=== PATIENT | female | born 1995 | race Caucasian/White ===

== ENCOUNTER 2020-11-05 10:55 | Observation (INO) | payer BC, SELFPAY ==
[2020-11-05] VITALS (59 sets, daily range): BP systolic 106–161; BP diastolic 66–110; PULSE 82–159; RESP 11–31; TEMP 36.6–37.9; O2SAT 93–99
[2020-11-05] MEDS: Normal Saline Flush 10 ML SYR IVP ×3 (11:25→23:04)
--- NOTE | 2020-11-05 11:31 | ED.GENADUL_ITS ---
Discharge Plan Discharge Details Chief Complaint: Abd Prob Primary Care Provider: Tara,Local ED Provider: Marisol Olivares Home Meds and New Rx's Prescriptions: No Action Nexplanon 68 MG implant 68 mg RF: 0 omeprazole 20 mg capsule,delayed release(DR/EC) 20 mg PO DAILY PRN PRNRF: 0 metoprolol succinate 25 mg tablet extended release 24 hr 25 mg PO DAILY RF: 0 Flovent HFA 110 mcg/actuation HFA aerosol inhaler 2 puff INHALATION DAILY RF: 0 albuterol sulfate [ProAir HFA] 90 mcg/actuation Hfa Aerosol Inhaler 2 puff INHALATION Q6H PRNRF: 0 Medical Decision Making Case discussed with Dr. Mary, surgeon who will evaluate the patient in the emergency room she has postsurgical with right lower quadrant pain, fever, chills, and meet criteria CT abdomen and pelvis do not show acute pathology per radiologist interpretation Dr. Mary does not see acute evidence of surgical abnormality, she has asked PACKAGING LINE ATTENDANT to evaluate the patient at this time, pending MARKETING COMMUNITY LIAISON evaluation , Mild elevation in CRP, patient is resting which were comfortably in room, she is mildly tachycardic after taking 2 puffs of her inhaler, she has some mild shortness of breath and wheezing with similar symptoms in the past with asthma exacerbation, dose of albuterol was administered Patient did receive a dose she met sepsis criteria upon arrival, she is pending disposition at that time, 1633 Low suspicion for pulmonary embolism, patient without initial presentation of shortness of breath or pleuritic pain, no calf pain or swelling, no history of coagulopathy with reproducible right lower quadrant abdominal discomfort Mild hypokalemia, 3.4, otherwise test do not show significant acute pathology Differential Diagnosis Differential Diagnosis: Intra-abdominal abscess, urinary tract infection, PID, tubo-ovarian abscess Medical Records Medical records reviewed: Yes I reviewed the patient's medical records. Lab Data Lab results reviewed: Yes I reviewed the patient's lab results. HPI This 25-year-old female with past medical history of hypertension presents with fever and worsening abdominal pain. She is status post appendectomy on 26 October. She is unaware she had a fever. She was evaluated on Tuesday by her surgeon, however they were going to perform watchful waiting in hopes of not reimaging patient. She presents today secondary to feeling worsening symptoms of pain. She describes the pain as sharp. Is worse with movement. Moving her bowels without difficulty. Denies nausea or vomiting. Has had chills. Denies urinary symptoms. Denies shortness of breath or chest discomfort. Denies pleuritic chest pain. General Date/Time Provider Initiated Documentation: 11/05/20 11:02 . Related Data Home Medications Medication Instructions Recorded Confirmed etonogestrel [Nexplanon] 68 mg 12/03/15 12/03/15 albuterol sulfate [ProAir HFA] 2 puff INHALATION Q6H PRN 11/05/20 11/05/20 fluticasone propionate [Flovent 2 puff INHALATION DAILY 11/05/20 11/05/20 HFA] metoprolol succinate 25 mg PO DAILY 11/05/20 11/05/20 omeprazole 20 mg PO DAILY PRN PRN 11/05/20 11/05/20 Allergies Allergy/AdvReac Type Severity Reaction Status Date / Time No Known Allergies Allergy Unverified 11/05/20 11:09 General Stated Complaint: Abd Prob JERE: 3 Review of Systems Narrative: Review of systems negative x7 aside from where indicated in HPI [facility] Medical History (Updated 11/05/20 @ 16:17 by Felicitas Mary MD) Endometriosis Hypertension Surgical History (Updated 11/05/20 @ 16:14 by Felicitas Mary MD) S/P laparoscopic appendectomy (~10/26/20) [place]: acute appendicitis and enometriosis S/P right oophorectomy for endometriosis Social History Smoking/Tobacco Use Status: Current every day Tobacco Type: cigarettes Smoking risk assessment performed?: Yes Drug use: Never Do you feel safe at home: Yes Do you feel safe in your relationship?: Yes Exam Const General: cooperative HENNH Mouth: oral mucosae normal Resp Effort & Inspection: normal respiratory effort Auscultation: clear to auscultation bilaterally Cardio Rate: tachycardic Rhythm: regular rhythm GI Other: Lap wounds well in appearance, no dehiscence, no superficial cellulitis, exquisitely tender with guarding, no CVA tenderness Neuro General: patient alert and patient oriented x3 Extrem Other: No calf tenderness or swelling Course Vital Signs Vital signs: Vital Signs Temperature 37.9 C H 11/05/20 11:01 Pulse 159 H 11/05/20 11:01 Respiratory Rate 20 11/05/20 11:01 Blood Pressure 161/110 H 11/05/20 11:01 Pulse Oximetry 99 11/05/20 11:01 Temperature 37.9 C H 11/05/20 11:01 Temperature Source Oral 11/05/20 11:01 Pulse 159 H 11/05/20 11:01 Respiratory Rate 20 11/05/20 11:01 Respiratory Effort Non-Labored 11/05/20 11:07 Blood Pressure 161/110 H 11/05/20 11:01 Blood Pressure Position Sitting 11/05/20 11:01 Pulse Oximetry 99 11/05/20 11:01 Oxygen Delivery Method Room Air 11/05/20 11:01 Oxygen Flow Rate 0 11/05/20 11:01 Pain Level 10 11/05/20 11:01 Lab/Test Results Lab/Test Results: 11/05/20 11:22 Blood Blood Culture - Pending 11/05/20 11:22 Blood Blood Culture - Pending Laboratory Tests Range/Units 11/05/20 11/05/20 11:22 11:23 WBC Cancelled RBC Cancelled Hgb Cancelled Hct Cancelled MCV Cancelled MCH Cancelled MCHC Cancelled RDW Cancelled Plt Count Cancelled MPV Cancelled Immature Gran % Cancelled Neutrophils % Cancelled Band Neutrophils % Cancelled Lymphocytes % Cancelled Atypical Lymphs % Cancelled Monocytes % Cancelled Eosinophils % Cancelled Basophils % Cancelled Metamyelocytes % Cancelled Myelocytes % Cancelled Promyelocytes % Cancelled Other Cells % Cancelled Nucleated RBC % Cancelled Absolute Neutrophils Cancelled Absolute Lymphocytes Cancelled Absolute Monocytes Cancelled Absolute Eosinophils Cancelled Absolute Basophils Cancelled RBC Morphology Cancelled Polychromasia Cancelled Hypochromasia Cancelled Poikilocytosis Cancelled Basophilic Stippling Cancelled Anisocytosis Cancelled Microcytosis Cancelled Macrocytosis Cancelled Spherocytes Cancelled Tear Drop Cells Cancelled Ovalocytes Cancelled Stomatocytes Cancelled [place] Bodies Cancelled Ramsay Cells/Echinocytes Cancelled Acanthocytes (Spur) Cancelled Schistocytes Cancelled Sodium Cancelled Potassium Cancelled Chloride Cancelled Carbon Dioxide Cancelled Anion Gap Cancelled BUN Cancelled Creatinine Cancelled Estimated GFR/1.73 m2 Cancelled Glucose Cancelled Calcium Cancelled Total Bilirubin Cancelled AST Cancelled ALT Cancelled Alkaline Phosphatase Cancelled Total Protein Cancelled Albumin Cancelled
[2020-11-05] MEDS: Normal Saline 500 ML 1000 ML IV (11:40)
[2020-11-05 11:43] LABS: Lactate 1.4 mmol/L (0.6-1.4)
[2020-11-05 11:46] LABS: Abs Immature Grans 0.02 10^3/uL (0.0-0.06); Absolute Basophil Count 0.04 10^3/uL (0.0-0.2); Absolute Eosinophil Count 0.11 10^3/uL (0.0-0.7); Absolute Monocyte Count 0.66 10^3/uL (0.1-0.8); Absolute Neutrophil Count 5.82 10^3/uL (1.2-6.7); Basophils % 0.4; Eosinophils % 1.2; HCT 43.2 % (36.0-46.0); HGB 14.8 g/dL (11.2-15.7); Immature Grans % 0.2; Lymphocytes % 28.9; MCH 28.8 pg (27.0-33.0); MCHC 34.3 % (32.0-36.0); MCV 84.2 fL (80-95); MPV 9.6 fL (8.0-11.0); Monocytes % 7.1; Neutrophils % 62.2; Nucleated RBC 0 %; Platelet Count 377 10^3/uL (130-400); RBC 5.13 10^6/uL (3.93-5.22); RDW 11.2 % (11.7-14.6); RDW-SD 34.5 fL; WBC 9.35 10^3/uL (4.4-10.8)
[2020-11-05] MEDS: fentaNYL 100 MCG/2 ML VIAL 50 MCG IM (11:50)
[2020-11-05] MEDS: PIPERACILLIN/TAZO 3.375 GM in Normal Saline 50 ML IVPB (11:54)
[2020-11-05 12:00] LABS: ALT 21 U/L (14-59); AST 14 U/L (15-37); Albumin 4.3 g/dL (3.4-5.0); Alkaline Phosphatase 99 U/L (46-116); Anion Gap 12.3 mmol/L (3-11); BUN 17 mg/dL (7-18); Bilirubin, Total 0.4 mg/dL (0.2-1.0); C-Reactive Protein 0.82 mg/dL (0.0-0.3); CO2 24.7 mmol/L (21.0-32.0); CREATININE 0.8 mg/dL (0.55-1.02); Calcium 9.3 mg/dL (8.5-10.1); Chloride 100 mmol/L (98-107); Glucose 104 mg/dL (74-106); Lipase 135 U/L (73-393); Potassium 3.4 mmol/L (3.5-5.1); Sodium 137 mmol/L (136-145); Total Protein 8.8 g/dL (6.4-8.2)
--- NOTE | 2020-11-05 12:00 | DI.RAD_ITS ---
EXAM: XR CHEST 2V PA LATERAL CLINICAL HISTORY: fever. TECHNIQUE: 2D digital imaging was performed. COMPARISON: No exams were available for comparison FINDINGS: Heart size is normal. The mediastinum is not widened. Lungs are clear. No infiltrates nor pleural effusions. IMPRESSION: No acute pulmonary findings. DATA REPOSITORY: RADIATION DOSE DELIVERED:
[2020-11-05 12:02] LABS: Magnesium 2.1 mg/dL (1.8-2.4)
[2020-11-05 12:07] LABS: Troponin I < 0.05 ng/mL (<0.06)
[2020-11-05 12:26] LABS: Bilirubin Negative (Negative); Blood Moderate (Negative); Clarity Clear (Clear); Glucose Negative (Negative); Ketones Negative (Negative); Leukocyte Esterase Negative (Negative); Nitrite Negative (Negative); Specific Gravity >= 1.030 (1.005-1.025); Urobilinogen 0.2 EU/dL (Up TO 0.2)
[2020-11-05 12:35] LABS: Bacteria Moderate HPF (Negative); C & S Indicated? No/Sq. Contamination; Casts Negative LPF (Negative); Crystals Negative HPF (Negative); Epithelial Cells Moderate HPF (Negative); Mucus Moderate (Negative); RBC 0-2 HPF (0-2)
[2020-11-05] MEDS: MORPHine 10 MG/ML VIAL 6 MG IVP ×2 (12:46→15:54)
[2020-11-05 12:52] LABS: Influenza A PCR Negative (Negative); Influenza B PCR Negative (Negative); RSV PCR Negative (Negative)
[2020-11-05 12:54] LABS: COVID-19 PCR Negative (Negative)
[2020-11-05] MEDS: Omnipaque 350 MG/ML 100 ML BTL IJ (13:33)
[2020-11-05] MEDS: Normal Saline - Diluent 50 ML VIAL IV (13:36)
--- NOTE | 2020-11-05 13:36 | DI.CT_ITS ---
EXAM: CT ABDOMEN PELVIS W CLINICAL HISTORY: RLQ pain. TECHNIQUE: Imaging Protocol: Axial computed tomography images with coronal and sagittal reformatted images were created and reviewed CONTRAST MATERIAL: Intravenous: Omnipaque 100cc Oral: None COMPARISON: Prior CT scan November 2015 was reviewed FINDINGS: VISUALIZED LUNG BASES: No nodules nor pleural effusions evident. ABDOMEN: There is no ascites. LIVER: There are no obvious focal hepatic lesions evident . GALLBLADDER/BILIARY: No obvious gallbladder pathology. CBD is not dilated. PANCREAS: No evidence of pancreatic mass nor dilatation of the pancreatic duct. SPLEEN: Spleen is not enlarged. No obvious intrasplenic lesions. Splenic and portal veins are paten t. ADRENALS: There are no significant adrenal masses. KIDNEYS:No cysts evident. No solid renal masses. No calculi nor hydronephrosis.. ABDOMINAL AORTA: Abdominal aorta is not enlarged. LYMPH NODES:There is no retroperitineal nor paraaortic adenopathy. ABDOMINAL WALL/GI: No evidence of significant anterior abdominal wall hernia. No bowel obstruction. PELVIS: GI: The appendix is surgically absent. There is no evidence of abscess in this region. No bowel obs truction.No evidence of sigmoid diverticulitis. LYMPH NODES: There is no intrapelvic nor inguinal adenopathy. REPRODUCTIVE: Age-appropriate URINARY BLADDER: No calculi nor obvious masses evident OSSEOUS: No significant osseous lesions. IMPRESSION: 1. Compared to 2016 there has been interval appendectomy. There is no abnormal fluid collection in t his region nor elsewhere in the abdomen and pelvis. 2. No bowel obstruction. No free air. No abscess. 3. Visualized lung bases are clear. RADIATION DOSE DELIVERED: 1,010.78mGy.cm Total DLP DATA REPOSITORY: All CT scans at this facility are submitted to the National Radiology Data Registry (NRDR) Dose Index Registry (DIR) with the [employer] (ACR). RADIATION OPTIMIZATION: All CT scans at this facility use at least one of these dose optimization te chniques: automated exposure control; mA and/or kV adjustment per patient size (includes targeted exa ms where dose is matched to clinical indication); or iterative reconstruction.
[2020-11-05] MEDS: HYDROmorphone 2 MG/ML VIAL 1 MG IVP (14:01)
[2020-11-05] MEDS: Albuterol HFA 8 GM 60 PUFF INH IH ×2 (15:27→20:52)
[2020-11-05] MEDS: Inhaler, Assist Device 1 EACH MC (15:27)
[2020-11-05] MEDS: Ketorolac 15 MG/ML VIAL IVP (15:45)
--- NOTE | 2020-11-05 15:56 | W.SURGCON ---
Date of service: 11/05/20 Time of Service: 15:56 Assessment and Plan Assessment and plan (1) Abdominal pain: Status: Acute Assessment and plan: 25 year old female with lower abdominal pain that has been going on for 10 days. She is 10 days status post lap. appi. CT scan reveals no abscess, free air or fat stranding. There is moderate amount of stool in her colon. There is no small bowel dilatation. On exam she is tender and has voluntary guarding along the lower abdomen. I dont think that her pain is due to her surgery. I do not see any GI pathology to explain her pain. ? PID or severe endometriosis I have called Dr. Begum and asked her to see the patient and see what she thinks. More recommendations to follow I spent 45 minutes in reviewing the record, seeing the patient and documenting in the medical record. Qualifiers: Abdominal location: lower abdomen, unspecified Qualified Code(s): R10.30 - Lower abdominal pain, unspecified History of Present Illness History of Present Illness Chief Complaint: abdominal pain Narrative: Ms Pimentel is a 25 year old female who is 10 days status post laparoscopic appendectomy in [place]. She saw her surgeon on Tuesday who elected to wait out the pain and see if it improved. She comes in today because of continued pain. She had diarrhea until 2 days ago. She has not had a BM in the last 2 days. When asked she tells me that this pain is the same as 10 days ago. She stats the pain is spread along the lower abdomen. She is tachycardic and hypertensive when she came to the ER. She has not taken her metoprolol since her surgery. She has no N/V. She also tells me that she has been having brown discharge from her vagina for 10 days at least. She has a past medical history of endometriosis and had her right ovary removed due to pain from the endomnetriosis. She states this pain is different then khang=e pain she used to have from the endometriosis. Labs are unremarkable. She doesn't have a Leukocytosis. Her Lactate is normal. CMP is unremarkable. UA showes blood but not bacteria or leukocyte esterase. Her LMP was 2 months ago, She has Nexplanon in her left arm. She denies being sexually active since surgery. CT scan was also unremarkable EXAM: CT ABDOMEN PELVIS W CLINICAL HISTORY: RLQ pain. TECHNIQUE: Imaging Protocol: Axial computed tomography images with coronal and sagittal reformatted images were created and reviewed CONTRAST MATERIAL: Intravenous: Omnipaque 100cc Oral: None COMPARISON: Prior CT scan November 2015 was reviewed FINDINGS: VISUALIZED LUNG BASES: No nodules nor pleural effusions evident. ABDOMEN: There is no ascites. LIVER: There are no obvious focal hepatic lesions evident . GALLBLADDER/BILIARY: No obvious gallbladder pathology. CBD is not dilated. PANCREAS: No evidence of pancreatic mass nor dilatation of the pancreatic duct. SPLEEN: Spleen is not enlarged. No obvious intrasplenic lesions. Splenic and portal veins are patent. ADRENALS: There are no significant adrenal masses. KIDNEYS:No cysts evident. No solid renal masses. No calculi nor hydronephrosis.. ABDOMINAL AORTA: Abdominal aorta is not enlarged. LYMPH NODES:There is no retroperitineal nor paraaortic adenopathy. ABDOMINAL WALL/GI: No evidence of significant anterior abdominal wall hernia. No bowel obstruction. PELVIS: GI: The appendix is surgically absent. There is no evidence of abscess in this region. No bowel obstruction.No evidence of sigmoid diverticulitis. LYMPH NODES: There is no intrapelvic nor inguinal adenopathy. REPRODUCTIVE: Age-appropriate URINARY BLADDER: No calculi nor obvious masses evident OSSEOUS: No significant osseous lesions. IMPRESSION: 1. Compared to 2016 there has been interval appendectomy. There is no abnormal fluid collection in this region nor elsewhere in the abdomen and pelvis. 2. No bowel obstruction. No free air. No abscess. 3. Visualized lung bases are clear. Consults Consult date: 11/05/20 Requesting physician: Marisol Olivares Review of Systems Constitutional Constitutional: Reports fever(s), Denies headache(s) and Denies weight loss Eyes Eyes: Denies blurry vision ENT Ears, Nose, Mouth, and Throat: Denies headache(s) Cardiovascular Cardiovascular: Denies chest pain, Denies irregular heart rhythm, Denies palpitations, Denies dyspnea and Denies dyspnea on exertion Respiratory Respiratory: Denies cough, Denies dyspnea and Denies dyspnea on exertion Gastrointestinal Gastrointestinal: Reports as per HPI Genitourinary Genitourinary: Reports as per HPI Musculoskeletal Musculoskeletal: Reports system reviewed and no additional complaints, except as documented Integumentary/Breasts Skin/Breast: Reports system reviewed and no additional complaints, except as documented Neurologic Neurologic: Reports system reviewed and no additional complaints, except as documented and Denies headache(s) Psychiatric Psychiatric: Reports system reviewed and no additional complaints, except as documented Endocrine Endocrine: Reports system reviewed and no additional complaints, except as documented and Denies palpitations PFSH Medical History (Updated 11/05/20 @ 16:17 by Felicitas Mary MD) Endometriosis Hypertension Surgical History (Updated 11/05/20 @ 16:14 by Felicitas Mary MD) S/P laparoscopic appendectomy (~10/26/20) [place]: acute appendicitis and enometriosis S/P right oophorectomy for endometriosis Social History Smoking/Tobacco Use Status: Current every day Tobacco Type: cigarettes Smoking risk assessment performed?: Yes Drug use: Never Do you feel safe at home: Yes Do you feel safe in your relationship?: Yes Exam Const General: cooperative Nutritional Appearance: overweight Orientation: alert and oriented x3 HENMT Head: normocephalic and atraumatic Eyes Pupils: PERRL Resp Effort & Inspection: normal respiratory effort Auscultation: clear to auscultation bilaterally Cardio Rate: tachycardic Rhythm: regular rhythm Heart Sounds: no gallops, no murmurs and no rubs GI Inspection: incision (c/d/i) Palpation: soft, no hepatosplenomegaly and tender (lower abdomen with voluntary guarding. No rebound) Auscultation: normal bowel sounds Rectal Exam - female: deferred Abdomen image: 1. 2. 3. General: deferred Results Last Vital Signs Temp 99.3 F 11/05/20 15:21 Pulse 109 H 11/05/20 15:21 Resp 22 11/05/20 15:21 BP 123/80 11/05/20 15:21 Pulse Ox 99 11/05/20 15:21 Labs Result diagrams: 11/05/20 11:25 11/05/20 11:25 Labs: Laboratory Results - last 24 hr 11/05/20 11/05/20 11/05/20 11:22 11:23 11:25 WBC Cancelled RBC Cancelled Hgb Cancelled Hct Cancelled MCV Cancelled MCH Cancelled MCHC Cancelled RDW Cancelled Plt Count Cancelled MPV Cancelled Immature Gran % Cancelled Neutrophils % Cancelled Band Neutrophils % Cancelled Lymphocytes % Cancelled Atypical Lymphs % Cancelled Monocytes % Cancelled Eosinophils % Cancelled Basophils % Cancelled Metamyelocytes % Cancelled Myelocytes % Cancelled Promyelocytes % Cancelled Other Cells % Cancelled Nucleated RBC % Cancelled Absolute Neutrophils Cancelled Absolute Lymphocytes Cancelled Absolute Monocytes Cancelled Absolute Eosinophils Cancelled Absolute Basophils Cancelled RBC Morphology Cancelled Polychromasia Cancelled Hypochromasia Cancelled Poikilocytosis Cancelled Basophilic Stippling Cancelled Anisocytosis Cancelled Microcytosis Cancelled Macrocytosis Cancelled Spherocytes Cancelled Tear Drop Cells Cancelled Ovalocytes Cancelled Stomatocytes Cancelled Ross-[place] Bodies Cancelled Dino Cells/Echinocytes Cancelled Acanthocytes (Spur) Cancelled Schistocytes Cancelled VBG Lactate Sodium Cancelled 137 Potassium Cancelled 3.4 L Chloride Cancelled 100 Carbon Dioxide Cancelled 24.7 Anion Gap Cancelled 12.3 H BUN Cancelled 17 Creatinine Cancelled 0.8 Estimated GFR/1.73 m2 Cancelled >= 60.00 Glucose Cancelled 104 Calcium Cancelled 9.3 Magnesium Total Bilirubin Cancelled 0.4 AST Cancelled 14 L ALT Cancelled 21 Alkaline Phosphatase Cancelled 99 Troponin I C-Reactive Protein 0.82 H Total Protein Cancelled 8.8 H Albumin Cancelled 4.3 Lipase 135 Urine Color Urine Clarity Urine pH Ur Specific [place] Urine Protein Urine Ketones Urine Blood Urine Nitrite Urine Bilirubin Urine Urobilinogen Ur Leukocyte Esterase Urine RBC Urine WBC Ur Epithelial Cells Urine Crystals Urine Bacteria Urine Casts Urine Mucus Ur Culture Indicated? Urine Glucose COVID-19 Source SARS-CoV-2 (PCR) Influenza Type A (PCR) Influenza Type B (PCR) RSV (PCR) 11/05/20 11/05/20 11/05/20 11:25 11:25 11:25 WBC 9.35 RBC 5.13 Hgb 14.8 Hct 43.2 MCV 84.2 MCH 28.8 MCHC 34.3 RDW 11.2 L Plt Count 377 MPV 9.6 Immature Gran % 0.2 Neutrophils % 62.2 Band Neutrophils % Lymphocytes % 28.9 Atypical Lymphs % Monocytes % 7.1 Eosinophils % 1.2 Basophils % 0.4 Metamyelocytes % Myelocytes % Promyelocytes % Other Cells % Nucleated RBC % 0 Absolute Neutrophils 5.82 Absolute Lymphocytes 2.70 Absolute Monocytes 0.66 Absolute Eosinophils 0.11 Absolute Basophils 0.04 RBC Morphology Polychromasia Hypochromasia Poikilocytosis Basophilic Stippling Anisocytosis Microcytosis Macrocytosis Spherocytes Tear Drop Cells Ovalocytes Stomatocytes Ross-[place] Bodies Dino Cells/Echinocytes Acanthocytes (Spur) Schistocytes VBG Lactate 1.4 Sodium Potassium Chloride Carbon Dioxide Anion Gap BUN Creatinine Estimated GFR/1.73 m2 Glucose Calcium Magnesium 2.1 Total Bilirubin AST ALT Alkaline Phosphatase Troponin I < 0.05 C-Reactive Protein Total Protein Albumin Lipase Urine Color Urine Clarity Urine pH Ur Specific [place] Urine Protein Urine Ketones Urine Blood Urine Nitrite Urine Bilirubin Urine Urobilinogen Ur Leukocyte Esterase Urine RBC Urine WBC Ur Epithelial Cells Urine Crystals Urine Bacteria Urine Casts Urine Mucus Ur Culture Indicated? Urine Glucose COVID-19 Source SARS-CoV-2 (PCR) Influenza Type A (PCR) Influenza Type B (PCR) RSV (PCR) 11/05/20 11/05/20 11/05/20 12:03 12:10 14:23 WBC RBC Hgb Hct MCV MCH MCHC RDW Plt Count MPV Immature Gran % Neutrophils % Band Neutrophils % Lymphocytes % Atypical Lymphs % Monocytes % Eosinophils % Basophils % Metamyelocytes % Myelocytes % Promyelocytes % Other Cells % Nucleated RBC % Absolute Neutrophils Absolute Lymphocytes Absolute Monocytes Absolute Eosinophils Absolute Basophils RBC Morphology Polychromasia Hypochromasia Poikilocytosis Basophilic Stippling Anisocytosis Microcytosis Macrocytosis Spherocytes Tear Drop Cells Ovalocytes Stomatocytes Ross-[place] Bodies Dino Cells/Echinocytes Acanthocytes (Spur) Schistocytes VBG Lactate Sodium Potassium Chloride Carbon Dioxide Anion Gap BUN Creatinine Estimated GFR/1.73 m2 Glucose Calcium Magnesium Total Bilirubin AST ALT Alkaline Phosphatase Troponin I Cancelled C-Reactive Protein Total Protein Albumin Lipase Urine Color Yellow Urine Clarity Clear Urine pH 6.0 Ur Specific [place] >= 1.030 H Urine Protein Negative Urine Ketones Negative Urine Blood Moderate H Urine Nitrite Negative Urine Bilirubin Negative Urine Urobilinogen 0.2 Ur Leukocyte Esterase Negative Urine RBC 0-2 Urine WBC 3-5 Ur Epithelial Cells Moderate Urine Crystals Negative Urine Bacteria Moderate Urine Casts Negative Urine Mucus Moderate Ur Culture Indicated? No/sq. contamination Urine Glucose Negative COVID-19 Source Nasopharyx SARS-CoV-2 (PCR) Negative Influenza Type A (PCR) Negative Influenza Type B (PCR) Negative RSV (PCR) Negative
[2020-11-05] MEDS: Acetaminophen 500 MG TAB 1000 MG PO (16:47)
--- NOTE | 2020-11-05 17:14 | W.PM.HP.N ---
Date of service: 11/05/20 Time of Service: 17:15 Assessment and Plan Assessment and plan (1) Endometriosis: Status: Inactive Assessment and plan: Unclear if current exacerbation of pelvic pain is a flare of her endometriosis. Plan is to manage her symptoms with nonsteroidal anti-inflammatories and Dilaudid. She has a Nexplanon in place. No indication at this time to provide additional hormonal support and attempt to stop her breakthrough bleeding. (2) Abdominal pain: Status: Acute Assessment and plan: Differential diagnosis includes pelvic inflammatory disease from anaerobic sources. Urine was obtained for gonorrhea and chlamydia although the patient recently had STI testing as part of her annual exam. Will obtain a pelvic ultrasound and daily CBCs. Antibiotic treatment for presumed PID has been initiated. Qualifiers: Abdominal location: lower abdomen, unspecified Qualified Code(s): R10.30 - Lower abdominal pain, unspecified (3) Hypertension: Status: Acute Assessment and plan: Chronic condition. She did not take metoprolol today secondary to feeling poorly. We will continue with metoprolol at current dose. (4) Tachycardia: Status: Acute Assessment and plan: I feel that her elevated pulse is secondary to abdominal pain. She is sinus rhythm. We will continue to follow. History of Present Illness History of Present Illness Chief Complaint: Abdominal pain, postop day 10 laparoscopic appendectomy Consults Consult date: 11/05/20 Requesting physician: Paradise Cardenas Narrative: Patient is a 25-year-old G0 female with a diagnosis of pelvic endometriosis initially documented at age 16. She had an episode of acute abdominal pain on 08/25/2021 and underwent a laparoscopic appendectomy by the general surgeon at [facility]. Final pathology showed appendicitis and endometriosis. Is unclear the extent of the endometriosis involvement in the appendix. She was discharged from same-day surgery and continued to have generalized abdominal pain not dissimilar to what she experienced prior to her appendectomy. She was evaluated at [facility] for postop appointment yesterday. Patient had a negative urinalysis. No additional imaging was performed. On presentation to the [facility] emergency department she was tachycardic with blood pressure elevation a maximum temperature of 100.5 ?F. Laboratory studies: Normal WBC, negative lactate, and normal electrolytes. Imaging studies: Abdominal CT scan essentially normal. General surgery consult performed by Dr. Mary who did not feel that this was GI in nature. Review of Systems Constitutional Constitutional: Reports fever(s) (Chills earlier today) Cardiovascular Cardiovascular: Reports rapid heart rate (Has not taken metoprolol which she uses for blood pressure control) Respiratory Respiratory: Reports system reviewed and no additional complaints, except as documented Gastrointestinal Gastrointestinal: Reports abdominal pain (Diffuse extending right to left over lower abdomen), Denies change in bowel habits, Denies constipation, Denies diarrhea and Reports other (BM yesterday. Normal.) Genitourinary Genitourinary: Reports pelvic pain and Reports vaginal pruritus (This a.m.) Comments: Patient has a Nexplanon in place that she uses for treatment of endometriosis. She has been amenorrheic until after her appendectomy when she had uterine bleeding of small amount dark red blood until this morning when she noticed clots from the vagina. Her bleeding however has not been excessive. She also reports that her pain does not feel like endometriosis pain. Integumentary/Breasts Skin/Breast: Reports system reviewed and no additional complaints, except as documented and Reports breast mass (2 cystic structures left breast) Neurologic Neurologic: Reports tremor(s) (While in the ER-tremors of her hands) Psychiatric Psychiatric: Reports anxiety (Concerned that something bad is occurring) Comments: Patient is despondent about the finding of endometriosis present on the appendix that was removed at [facility]. She states that the pain she has experienced for approximately 10 years seems to be worsening for the episode. She has been in in conversation with her FIRE DEPARTMENT MARINE ENGINEER regarding a hysterectomy with bilateral salpingo-oophorectomy. [facility] Medical History Asthma Endometriosis Diagnosed at age 16. Treated with both medical and surgical therapy. Hypertension Rx with metoprolol Tobacco use Surgical History (Updated 11/05/20 @ 16:14 by Felicitas Mary MD) S/P laparoscopic appendectomy (~10/26/20) [place]: acute appendicitis and enometriosis S/P right oophorectomy for endometriosis Social History (Updated 11/05/20 @ 18:25 by Jasmin Gan MD) Smoking/Tobacco Use Status: Current every day Tobacco Type: cigarettes Smoking risk assessment performed?: Yes Drug use: Never Household members: family and other Details: Return from [place] 07/2020, was attending cosmetology school. Lives with mom. 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 Sexually active: No (Has not been in a relationship for 3 years) Do you feel safe at home: Yes Do you feel safe in your relationship?: Yes History History 0 Para Hx # Term Pregnancies Multiple births Hx # Pregnancies Ectopic pregnancies AB induced Hx Number of Living Children AB spontaneous Meds Home Medications and Allergies Home Medications Medication Instructions Recorded Confirmed Type etonogestrel [Nexplanon] 68 mg 12/03/15 12/03/15 History albuterol sulfate [ProAir HFA] 2 puff INHALATION Q6H PRN 11/05/20 11/05/20 History fluticasone propionate [Flovent 2 puff INHALATION DAILY 11/05/20 11/05/20 History HFA] metoprolol succinate 25 mg PO DAILY 11/05/20 11/05/20 History omeprazole 20 mg PO DAILY PRN PRN 11/05/20 11/05/20 History Allergies Allergy/AdvReac Type Severity Reaction Status Date / Time No Known Allergies Allergy Unverified 11/05/20 11:09 Exam Narrative Exam Narrative: Sitting up 30 degrees semi-Fowlers on [facility]. Const General: in distress and anxious Nutritional Appearance: overweight Orientation: alert, awake and oriented x3 Neck Neck: normal visual inspection Chest Chest: normal inspection of the chest Breast inspection: normal inspection of the breasts and normal inspection of the axillae Breast palpation: normal palpation of the breasts (2 mobile cystic structures left breast), normal palpation of the axillae and no axillary lymphadenopathy Chest/axillae images: 1. 2cm superficial, mobile, non-tender cystic mass 2. 1cm superficial mobile and non-tender cystic mass Resp Effort & Inspection: normal respiratory effort Auscultation: clear to auscultation bilaterally Cardio Rate: regular rate Rhythm: regular rhythm GI Inspection: scar (Trocar sites clean dry and intact, skin glue present) Palpation: soft, no hepatosplenomegaly, guarding in the LLQ and in the RLQ, no masses, not rigid and tender other (Diffuse tenderness throughout right and left lower quadrants) Percussion: normal to percussion Auscultation: normal bowel sounds Rectal Exam - female: deferred Speculum Exam - Cervix: tender (Generalized tenderness.) Bimanual Exam- Vagina & Uterus: tender (Generalized tenderness.) and tender (To palpation bilaterally) Bimanual Exam- Adnexa, other: adnexae mobile, no masses and tender bilaterally Extrem General: normal to inspection Psych Appearance: grossly normal Mental Status: mental status grossly normal Speech and Movement: speech and movement normal Mood: anxious mood Affect: anxious affect Attitude: cooperative Thought Process: normal Thought Content: normal Insight: insight good Judgment: judgment good Results Labs Result diagrams: 11/06/20 06:15 11/05/20 11:25 Labs: Laboratory Results - last 24 hr 11/05/20 11/05/20 11/05/20 11:22 11:23 11:25 WBC Cancelled RBC Cancelled Hgb Cancelled Hct Cancelled MCV Cancelled MCH Cancelled MCHC Cancelled RDW Cancelled Plt Count Cancelled MPV Cancelled Immature Gran % Cancelled Neutrophils % Cancelled Band Neutrophils % Cancelled Lymphocytes % Cancelled Atypical Lymphs % Cancelled Monocytes % Cancelled Eosinophils % Cancelled Basophils % Cancelled Metamyelocytes % Cancelled Myelocytes % Cancelled Promyelocytes % Cancelled Other Cells % Cancelled Nucleated RBC % Cancelled Absolute Neutrophils Cancelled Absolute Lymphocytes Cancelled Absolute Monocytes Cancelled Absolute Eosinophils Cancelled Absolute Basophils Cancelled RBC Morphology Cancelled Polychromasia Cancelled Hypochromasia Cancelled Poikilocytosis Cancelled Basophilic Stippling Cancelled Anisocytosis Cancelled Microcytosis Cancelled Macrocytosis Cancelled Spherocytes Cancelled Tear Drop Cells Cancelled Ovalocytes Cancelled Stomatocytes Cancelled [place] Bodies Cancelled Dino Cells/Echinocytes Cancelled Acanthocytes (Spur) Cancelled Schistocytes Cancelled VBG Lactate Sodium Cancelled 137 Potassium Cancelled 3.4 L Chloride Cancelled 100 Carbon Dioxide Cancelled 24.7 Anion Gap Cancelled 12.3 H BUN Cancelled 17 Creatinine Cancelled 0.8 Estimated GFR/1.73 m2 Cancelled >= 60.00 Glucose Cancelled 104 Calcium Cancelled 9.3 Magnesium Total Bilirubin Cancelled 0.4 AST Cancelled 14 L ALT Cancelled 21 Alkaline Phosphatase Cancelled 99 Troponin I C-Reactive Protein 0.82 H Total Protein Cancelled 8.8 H Albumin Cancelled 4.3 Lipase 135 Urine Color Urine Clarity Urine pH Ur Specific [place] Urine Protein Urine Ketones Urine Blood Urine Nitrite Urine Bilirubin Urine Urobilinogen Ur Leukocyte Esterase Urine RBC Urine WBC Ur Epithelial Cells Urine Crystals Urine Bacteria Urine Casts Urine Mucus Ur Culture Indicated? Urine Glucose COVID-19 Source SARS-CoV-2 (PCR) Influenza Type A (PCR) Influenza Type B (PCR) RSV (PCR) 11/05/20 11/05/20 11/05/20 11:25 11:25 11:25 WBC 9.35 RBC 5.13 Hgb 14.8 Hct 43.2 MCV 84.2 MCH 28.8 MCHC 34.3 RDW 11.2 L Plt Count 377 MPV 9.6 Immature Gran % 0.2 Neutrophils % 62.2 Band Neutrophils % Lymphocytes % 28.9 Atypical Lymphs % Monocytes % 7.1 Eosinophils % 1.2 Basophils % 0.4 Metamyelocytes % Myelocytes % Promyelocytes % Other Cells % Nucleated RBC % 0 Absolute Neutrophils 5.82 Absolute Lymphocytes 2.70 Absolute Monocytes 0.66 Absolute Eosinophils 0.11 Absolute Basophils 0.04 RBC Morphology Polychromasia Hypochromasia Poikilocytosis Basophilic Stippling Anisocytosis Microcytosis Macrocytosis Spherocytes Tear Drop Cells Ovalocytes Stomatocytes [place] Bodies Dino Cells/Echinocytes Acanthocytes (Spur) Schistocytes VBG Lactate 1.4 Sodium Potassium Chloride Carbon Dioxide Anion Gap BUN Creatinine Estimated GFR/1.73 m2 Glucose Calcium Magnesium 2.1 Total Bilirubin AST ALT Alkaline Phosphatase Troponin I < 0.05 C-Reactive Protein Total Protein Albumin Lipase Urine Color Urine Clarity Urine pH Ur Specific [place] Urine Protein Urine Ketones Urine Blood Urine Nitrite Urine Bilirubin Urine Urobilinogen Ur Leukocyte Esterase Urine RBC Urine WBC Ur Epithelial Cells Urine Crystals Urine Bacteria Urine Casts Urine Mucus Ur Culture Indicated? Urine Glucose COVID-19 Source SARS-CoV-2 (PCR) Influenza Type A (PCR) Influenza Type B (PCR) RSV (PCR) 11/05/20 11/05/20 11/05/20 12:03 12:10 14:23 WBC RBC Hgb Hct MCV MCH MCHC RDW Plt Count MPV Immature Gran % Neutrophils % Band Neutrophils % Lymphocytes % Atypical Lymphs % Monocytes % Eosinophils % Basophils % Metamyelocytes % Myelocytes % Promyelocytes % Other Cells % Nucleated RBC % Absolute Neutrophils Absolute Lymphocytes Absolute Monocytes Absolute Eosinophils Absolute Basophils RBC Morphology Polychromasia Hypochromasia Poikilocytosis Basophilic Stippling Anisocytosis Microcytosis Macrocytosis Spherocytes Tear Drop Cells Ovalocytes Stomatocytes [place] Bodies Dino Cells/Echinocytes Acanthocytes (Spur) Schistocytes VBG Lactate Sodium Potassium Chloride Carbon Dioxide Anion Gap BUN Creatinine Estimated GFR/1.73 m2 Glucose Calcium Magnesium Total Bilirubin AST ALT Alkaline Phosphatase Troponin I Cancelled C-Reactive Protein Total Protein Albumin Lipase Urine Color Yellow Urine Clarity Clear Urine pH 6.0 Ur Specific [place] >= 1.030 H Urine Protein Negative Urine Ketones Negative Urine Blood Moderate H Urine Nitrite Negative Urine Bilirubin Negative Urine Urobilinogen 0.2 Ur Leukocyte Esterase Negative Urine RBC 0-2 Urine WBC 3-5 Ur Epithelial Cells Moderate Urine Crystals Negative Urine Bacteria Moderate Urine Casts Negative Urine Mucus Moderate Ur Culture Indicated? No/sq. contamination Urine Glucose Negative COVID-19 Source Nasopharyx SARS-CoV-2 (PCR) Negative Influenza Type A (PCR) Negative Influenza Type B (PCR) Negative RSV (PCR) Negative Last Vital Signs Temp 99.5 F 11/05/20 16:51 Pulse 123 H 11/05/20 16:51 Resp 20 11/05/20 16:51 BP 130/86 11/05/20 16:51 Pulse Ox 96 11/05/20 16:51 COVID-19 Screening Have you, or household traveled for leisure in last 14 days?: No Had IN PERSON contact w/suspected or confirmed C-19 person: No
[2020-11-05] MEDS: Ondansetron 4 MG/2 ML VIAL IVP ×2 (18:31→23:03)
[2020-11-05] MEDS: Lactated Ringers 1,000 ML 125 ML IV (18:32)
[2020-11-05] MEDS: CLINDAMYCIN 900 MG/50 ML BAG 50 MG IVPB (19:03)
[2020-11-05] MEDS: cefOXitin 2 GM in Normal Saline 50 ML IVPB (20:29)
[2020-11-05] MEDS: Fluconazole 150 MG TAB PO (23:00)
[2020-11-05] MEDS: Ketorolac 30 MG/ML VIAL IVP (23:00)
--- NOTE | 2020-11-06 | DI.US_ITS ---
EXAM: US PELVIS TRANSVAGINAL CLINICAL HISTORY: History of endometriosis, recent appendectomy, TECHNIQUE: Ultrasound of the pelvis was performed both transabdominal and transvaginal. COMPARISON: No exams were available for comparison FINDINGS: UTERUS: Measures 7.5 cm length x 2.9 cm AP x 4.6 cm wide. There are no uterine fibroids. Endometrial thickness measures 4 mm. There is no fluid in the endometrial canal. CERVIX: There are no obvious nabothian cysts. LEFT OVARY: There is a small cyst in the left ovary measuring 1.4 x 1.5 cm, probably dominant follicle. Vascular flow is demonstrated in the left ovary. The right ovary is surgically absent. CUL-DE-SAC: There is a small amount of free fluid in the cul-de-sac. IMPRESSION: 1. Normal appearing uterus and age-appropriate endometrium. 2. Small cyst in the left ovary which is probably follicular. Right ovary is surgically absent 3. Small amount of fluid in the cul-de-sac noted. DATA REPOSITORY:
[2020-11-06] MEDS: cefOXitin 2 GM in Normal Saline 50 ML IVPB ×4 (01:36→20:22)
[2020-11-06] MEDS: CLINDAMYCIN 900 MG/50 ML BAG 50 MG IVPB ×3 (02:58→18:41)
[2020-11-06] MEDS: Lactated Ringers 1,000 ML 125 ML IV ×3 (02:58→22:02)
[2020-11-06 03:25] VITALS: BP 105/65; PULSE 95; RESP 18; TEMP 36.5; O2SAT 98
[2020-11-06] MEDS: Ketorolac 30 MG/ML VIAL IVP ×4 (04:39→21:50)
[2020-11-06] MEDS: Normal Saline Flush 10 ML SYR IVP ×7 (04:40→21:00)
[2020-11-06] MEDS: Albuterol HFA 8 GM 60 PUFF INH IH ×3 (04:46→21:52)
[2020-11-06 07:06] LABS: HCT 34.2 % (36.0-46.0); HGB 11.7 g/dL (11.2-15.7); MCHC 34.2 % (32.0-36.0); MCV 84.9 fL (80-95); MPV 9.8 fL (8.0-11.0); Platelet Count 268 10^3/uL (130-400); RBC 4.03 10^6/uL (3.93-5.22); RDW 11.5 % (11.7-14.6); RDW-SD 35.4 fL; WBC 5.22 10^3/uL (4.4-10.8)
[2020-11-06 07:26] VITALS: BP 101/68; PULSE 70; RESP 21; TEMP 36.6; O2SAT 96
[2020-11-06] MEDS: Mometasone 220 MCG 14 DOSE INHALER 1 PUFF IH (07:47)
[2020-11-06] MEDS: Nicotine 21 MG/24 HR PATCH TD (08:20)
[2020-11-06] MEDS: Metoprolol CR 25 MG TABCR PO (08:20)
[2020-11-06] MEDS: Ondansetron 4 MG/2 ML VIAL IVP ×3 (08:21→20:59)
--- NOTE | 2020-11-06 08:22 | W.PM.PROGNOT ---
Date of Service Date of service: 11/06/20 Time of Service: 08:23 Assessment and Plan Assessment and plan (1) Tachycardia: Status: Acute Assessment and plan: Resolved with adequate pain control. (2) Hypertension: Status: Acute (3) Abdominal pain: Status: Acute Assessment and plan: Patient has used Dilaudid ADVERTISING AGENCY MANAGER during the night with some pain relief. She continues to have diffuse abdominal pain and has limited her range of motion while in bed secondary to discomfort. I spoke with general surgery who does not feel that there is a general surgery problem. Their assistance is appreciated. Pelvic ultrasound is pending. CBC is also pending. Patient has been afebrile during the night. Blood cultures obtained at the time of admission are currently pending. Qualifiers: Abdominal location: lower abdomen, unspecified Qualified Code(s): R10.30 - Lower abdominal pain, unspecified (4) Asthma: Status: Acute Assessment and plan: Exacerbation of symptoms last night. With her metered-dose inhalers. The plan is to have nebulizer of albuterol as needed during the day. Respiratory therapy is in agreement with the plan. (5) Tobacco use: Status: Acute Assessment and plan: The patient currently has an order for nicotine patch 21 mg a day. (6) Endometriosis: Status: Acute Assessment and plan: Had the opportunity to speak to the patient's [employer] provider Dr. Bocanegra regarding the patient's admission. He to does not feel that this is an exacerbation of pre-existing endometriosis. The plan is to continue treatment for presumed pelvic inflammatory disease and have the patient follow-up discharge with Dr. Bocanegra. Subjective Subjective Patient reports: still having pain, no bowel movement, nausea and shortness of breath (Episode of wheezing not responsive to albuterol metered-dose inhaler); denies flatus and bowel movement Interval history since last seen: Patient had some relief using Dilaudid ADVERTISING AGENCY MANAGER during the night. Still has difficulty sitting up secondary to pelvic abdominal pain. Describes pain beneath her rib cage and is unsure if it is related to GERD or nausea she experiences after eating. No BM x2 days. Exam Const General: ill appearing Nutritional Appearance: overweight Orientation: alert, awake (Slightly drowsy-most likely secondary to Dilaudid ADVERTISING AGENCY MANAGER) and oriented x3 Resp Effort & Inspection: normal respiratory effort, able to speak in complete sentences and cough Quality of cough: dry (With deep breath) Auscultation: wheezes scattered wheezes and right lower Cardio Rate: regular rate (Tachycardia has resolved. Blood pressure improved) Rhythm: regular rhythm GI Inspection: distended (Slightly) and scar (Trocar sites intact without edema or ecchymosis) Palpation: firm, guarding, no masses and tender (Diffuse tenderness throughout the abdomen or suprapubic) Auscultation: normal bowel sounds General: deferred Skin General skin exam: no rashes or lesions noted Extrem General: normal to inspection (SCDs in place) Psych Appearance: grossly normal Mental Status: mental status grossly normal Mood: anxious mood Affect: blunted Attitude: cooperative Thought Process: normal Thought Content: normal Insight: insight good Judgment: judgment good Objective Last Vital Signs Temp 97.9 F 11/06/20 07:26 Pulse 70 11/06/20 07:26 Resp 21 11/06/20 07:26 BP 101/68 11/06/20 07:26 Pulse Ox 96 11/06/20 07:26 Laboratory Results - last 24 hr 11/05/20 11/05/20 11/05/20 11:22 11:23 11:25 WBC Cancelled RBC Cancelled Hgb Cancelled Hct Cancelled MCV Cancelled MCH Cancelled MCHC Cancelled RDW Cancelled Plt Count Cancelled MPV Cancelled Immature Gran % Cancelled Neutrophils % Cancelled Band Neutrophils % Cancelled Lymphocytes % Cancelled Atypical Lymphs % Cancelled Monocytes % Cancelled Eosinophils % Cancelled Basophils % Cancelled Metamyelocytes % Cancelled Myelocytes % Cancelled Promyelocytes % Cancelled Other Cells % Cancelled Nucleated RBC % Cancelled Absolute Neutrophils Cancelled Absolute Lymphocytes Cancelled Absolute Monocytes Cancelled Absolute Eosinophils Cancelled Absolute Basophils Cancelled RBC Morphology Cancelled Polychromasia Cancelled Hypochromasia Cancelled Poikilocytosis Cancelled Basophilic Stippling Cancelled Anisocytosis Cancelled Microcytosis Cancelled Macrocytosis Cancelled Spherocytes Cancelled Tear Drop Cells Cancelled Ovalocytes Cancelled Stomatocytes Cancelled [place] Bodies Cancelled Dino Cells/Echinocytes Cancelled Acanthocytes (Spur) Cancelled Schistocytes Cancelled VBG Lactate Sodium Cancelled 137 Potassium Cancelled 3.4 L Chloride Cancelled 100 Carbon Dioxide Cancelled 24.7 Anion Gap Cancelled 12.3 H BUN Cancelled 17 Creatinine Cancelled 0.8 Estimated GFR/1.73 m2 Cancelled >= 60.00 Glucose Cancelled 104 Calcium Cancelled 9.3 Magnesium Total Bilirubin Cancelled 0.4 AST Cancelled 14 L ALT Cancelled 21 Alkaline Phosphatase Cancelled 99 Troponin I C-Reactive Protein 0.82 H Total Protein Cancelled 8.8 H Albumin Cancelled 4.3 Lipase 135 Urine Color Urine Clarity Urine pH Ur Specific [place] Urine Protein Urine Ketones Urine Blood Urine Nitrite Urine Bilirubin Urine Urobilinogen Ur Leukocyte Esterase Urine RBC Urine WBC Ur Epithelial Cells Urine Crystals Urine Bacteria Urine Casts Urine Mucus Ur Culture Indicated? Urine Glucose COVID-19 Source SARS-CoV-2 (PCR) Influenza Type A (PCR) Influenza Type B (PCR) RSV (PCR) 11/05/20 11/05/20 11/05/20 11:25 11:25 11:25 WBC 9.35 RBC 5.13 Hgb 14.8 Hct 43.2 MCV 84.2 MCH 28.8 MCHC 34.3 RDW 11.2 L Plt Count 377 MPV 9.6 Immature Gran % 0.2 Neutrophils % 62.2 Band Neutrophils % Lymphocytes % 28.9 Atypical Lymphs % Monocytes % 7.1 Eosinophils % 1.2 Basophils % 0.4 Metamyelocytes % Myelocytes % Promyelocytes % Other Cells % Nucleated RBC % 0 Absolute Neutrophils 5.82 Absolute Lymphocytes 2.70 Absolute Monocytes 0.66 Absolute Eosinophils 0.11 Absolute Basophils 0.04 RBC Morphology Polychromasia Hypochromasia Poikilocytosis Basophilic Stippling Anisocytosis Microcytosis Macrocytosis Spherocytes Tear Drop Cells Ovalocytes Stomatocytes [place] Bodies [place] Cells/Echinocytes Acanthocytes (Spur) Schistocytes VBG Lactate 1.4 Sodium Potassium Chloride Carbon Dioxide Anion Gap BUN Creatinine Estimated GFR/1.73 m2 Glucose Calcium Magnesium 2.1 Total Bilirubin AST ALT Alkaline Phosphatase Troponin I < 0.05 C-Reactive Protein Total Protein Albumin Lipase Urine Color Urine Clarity Urine pH Ur Specific [place] Urine Protein Urine Ketones Urine Blood Urine Nitrite Urine Bilirubin Urine Urobilinogen Ur Leukocyte Esterase Urine RBC Urine WBC Ur Epithelial Cells Urine Crystals Urine Bacteria Urine Casts Urine Mucus Ur Culture Indicated? Urine Glucose COVID-19 Source SARS-CoV-2 (PCR) Influenza Type A (PCR) Influenza Type B (PCR) RSV (PCR) 11/05/20 11/05/20 11/05/20 12:03 12:10 14:23 WBC RBC Hgb Hct MCV MCH MCHC RDW Plt Count MPV Immature Gran % Neutrophils % Band Neutrophils % Lymphocytes % Atypical Lymphs % Monocytes % Eosinophils % Basophils % Metamyelocytes % Myelocytes % Promyelocytes % Other Cells % Nucleated RBC % Absolute Neutrophils Absolute Lymphocytes Absolute Monocytes Absolute Eosinophils Absolute Basophils RBC Morphology Polychromasia Hypochromasia Poikilocytosis Basophilic Stippling Anisocytosis Microcytosis Macrocytosis Spherocytes Tear Drop Cells Ovalocytes Stomatocytes [place] Bodies Dino Cells/Echinocytes Acanthocytes (Spur) Schistocytes VBG Lactate Sodium Potassium Chloride Carbon Dioxide Anion Gap BUN Creatinine Estimated GFR/1.73 m2 Glucose Calcium Magnesium Total Bilirubin AST ALT Alkaline Phosphatase Troponin I Cancelled C-Reactive Protein Total Protein Albumin Lipase Urine Color Yellow Urine Clarity Clear Urine pH 6.0 Ur Specific [place] >= 1.030 H Urine Protein Negative Urine Ketones Negative Urine Blood Moderate H Urine Nitrite Negative Urine Bilirubin Negative Urine Urobilinogen 0.2 Ur Leukocyte Esterase Negative Urine RBC 0-2 Urine WBC 3-5 Ur Epithelial Cells Moderate Urine Crystals Negative Urine Bacteria Moderate Urine Casts Negative Urine Mucus Moderate Ur Culture Indicated? No/sq. contamination Urine Glucose Negative COVID-19 Source Nasopharyx SARS-CoV-2 (PCR) Negative Influenza Type A (PCR) Negative Influenza Type B (PCR) Negative RSV (PCR) Negative 11/06/20 06:15 WBC 5.22 D RBC 4.03 Hgb 11.7 D Hct 34.2 L D MCV 84.9 MCH 29.0 MCHC 34.2 RDW 11.5 L Plt Count 268 D MPV 9.8 Immature Gran % Neutrophils % Band Neutrophils % Lymphocytes % Atypical Lymphs % Monocytes % Eosinophils % Basophils % Metamyelocytes % Myelocytes % Promyelocytes % Other Cells % Nucleated RBC % Absolute Neutrophils Absolute Lymphocytes Absolute Monocytes Absolute Eosinophils Absolute Basophils RBC Morphology Polychromasia Hypochromasia Poikilocytosis Basophilic Stippling Anisocytosis Microcytosis Macrocytosis Spherocytes Tear Drop Cells Ovalocytes Stomatocytes [place] Bodies [place] Cells/Echinocytes Acanthocytes (Spur) Schistocytes VBG Lactate Sodium Potassium Chloride Carbon Dioxide Anion Gap BUN Creatinine Estimated GFR/1.73 m2 Glucose Calcium Magnesium Total Bilirubin AST ALT Alkaline Phosphatase Troponin I C-Reactive Protein Total Protein Albumin Lipase Urine Color Urine Clarity Urine pH Ur Specific [place] Urine Protein Urine Ketones Urine Blood Urine Nitrite Urine Bilirubin Urine Urobilinogen Ur Leukocyte Esterase Urine RBC Urine WBC Ur Epithelial Cells Urine Crystals Urine Bacteria Urine Casts Urine Mucus Ur Culture Indicated? Urine Glucose COVID-19 Source SARS-CoV-2 (PCR) Influenza Type A (PCR) Influenza Type B (PCR) RSV (PCR)
--- NOTE | 2020-11-06 08:56 | PGE_ITS ---
Date of Service Date of service: 11/06/20 Time of Service: 08:56 Assessment and Plan Assessment and plan (1) Endometriosis: Status: Acute (2) Tachycardia: Status: Acute (3) Tobacco use: Status: Acute (4) Abdominal pain: Status: Acute Assessment and plan: I did review her CT. I had discussed the case yesterday with Dr. Mary. From general surgical standpoint I do not think there is any signs abscess, bowel obstruction ischemia or infectious etiologies. There does not appear to be any internal hernias or incisional hernias. There is no incisional infections. And no think there is any complications from her appendectomy. The surgeons and report did not comment on her endometriosis at the time of surgery. There was endometriosis noted on the appendix and her pathology. I did discuss the case with Dr. Gan today unfortunately at this point I do think her pain stems from her endometriosis. She does have a hormonal control implant. She has not been down to [facility] or seen any DIRECTOR HOUSEKEEPING at any tertiary centers. She does have a pelvic ultrasound ordered today to rule out any Further ovarian or uterine problems. She has had one of her ovaries removed. Patient is very frustrated and tired of being in pain at this point. However she is very young to undergo hysterectomy. We will see if we can get a better pain regimen for her. And further work-up I will defer to DIRECTOR HOUSEKEEPING. We will reevaluate at your request. Qualifiers: Abdominal location: lower abdomen, unspecified Qualified Code(s): R10.30 - Lower abdominal pain, unspecified (5) S/P laparoscopic appendectomy: Status: Inactive Subjective Subjective Interval history since last seen: Pt states she feels no better today. This is the same pain that she was having prior to her appendectomy. She said the davies rgeon never talked to her and told her, about any endometrial findings at the time of surgery. No headaches. No CP or SOB. no productive cough. no dysuria. no leg pain or swelling. She was able to eat some scrambled egg this morning. She had no fevers overnight. She has had no nausea vomiting. She had a small but hard bowel movement today with no blood. Her incisions are clean dry and intact and well-healed.. She has had no drainage from them. She is in pretty severe pain again today. She has been using a CSR TECHNICIAN for pain management. Exam HENIL Other: No jaundice. No thrush. No oral abscesses. Resp Effort & Inspection: normal respiratory effort and able to speak in complete sentences Auscultation: clear to auscultation bilaterally Cardio Rate: tachycardic Rhythm: regular rhythm GI Palpation: soft and tender (suprapubic/lower abdom) Auscultation: normal bowel sounds Other: Incisions are clean dry and intact. Extrem Other: No pain or swelling. Objective Last Vital Signs Temp 36.6 C 11/06/20 07:26 Pulse 70 11/06/20 07:26 Resp 21 11/06/20 07:26 BP 101/68 11/06/20 07:26 Pulse Ox 96 11/06/20 07:26 Laboratory Results - last 24 hr 11/05/20 11/05/20 11/05/20 11:22 11:23 11:25 WBC Cancelled RBC Cancelled Hgb Cancelled Hct Cancelled MCV Cancelled MCH Cancelled MCHC Cancelled RDW Cancelled Plt Count Cancelled MPV Cancelled Immature Gran % Cancelled Neutrophils % Cancelled Band Neutrophils % Cancelled Lymphocytes % Cancelled Atypical Lymphs % Cancelled Monocytes % Cancelled Eosinophils % Cancelled Basophils % Cancelled Metamyelocytes % Cancelled Myelocytes % Cancelled Promyelocytes % Cancelled Other Cells % Cancelled Nucleated RBC % Cancelled Absolute Neutrophils Cancelled Absolute Lymphocytes Cancelled Absolute Monocytes Cancelled Absolute Eosinophils Cancelled Absolute Basophils Cancelled RBC Morphology Cancelled Polychromasia Cancelled Hypochromasia Cancelled Poikilocytosis Cancelled Basophilic Stippling Cancelled Anisocytosis Cancelled Microcytosis Cancelled Macrocytosis Cancelled Spherocytes Cancelled Tear Drop Cells Cancelled Ovalocytes Cancelled Stomatocytes Cancelled Ross-Kin[place] Bodies Cancelled [place] Cells/Echinocytes Cancelled Acanthocytes (Spur) Cancelled Schistocytes Cancelled VBG Lactate Sodium Cancelled 137 Potassium Cancelled 3.4 L Chloride Cancelled 100 Carbon Dioxide Cancelled 24.7 Anion Gap Cancelled 12.3 H BUN Cancelled 17 Creatinine Cancelled 0.8 Estimated GFR/1.73 m2 Cancelled >= 60.00 Glucose Cancelled 104 Calcium Cancelled 9.3 Magnesium Total Bilirubin Cancelled 0.4 AST Cancelled 14 L ALT Cancelled 21 Alkaline Phosphatase Cancelled 99 Troponin I C-Reactive Protein 0.82 H Total Protein Cancelled 8.8 H Albumin Cancelled 4.3 Lipase 135 Urine Color Urine Clarity Urine pH Ur Specific [place] Urine Protein Urine Ketones Urine Blood Urine Nitrite Urine Bilirubin Urine Urobilinogen Ur Leukocyte Esterase Urine RBC Urine WBC Ur Epithelial Cells Urine Crystals Urine Bacteria Urine Casts Urine Mucus Ur Culture Indicated? Urine Glucose COVID-19 Source SARS-CoV-2 (PCR) Influenza Type A (PCR) Influenza Type B (PCR) RSV (PCR) 11/05/20 11/05/20 11/05/20 11:25 11:25 11:25 WBC 9.35 RBC 5.13 Hgb 14.8 Hct 43.2 MCV 84.2 MCH 28.8 MCHC 34.3 RDW 11.2 L Plt Count 377 MPV 9.6 Immature Gran % 0.2 Neutrophils % 62.2 Band Neutrophils % Lymphocytes % 28.9 Atypical Lymphs % Monocytes % 7.1 Eosinophils % 1.2 Basophils % 0.4 Metamyelocytes % Myelocytes % Promyelocytes % Other Cells % Nucleated RBC % 0 Absolute Neutrophils 5.82 Absolute Lymphocytes 2.70 Absolute Monocytes 0.66 Absolute Eosinophils 0.11 Absolute Basophils 0.04 RBC Morphology Polychromasia Hypochromasia Poikilocytosis Basophilic Stippling Anisocytosis Microcytosis Macrocytosis Spherocytes Tear Drop Cells Ovalocytes Stomatocytes Ross-Kinmundy Bodies [place] Cells/Echinocytes Acanthocytes (Spur) Schistocytes VBG Lactate 1.4 Sodium Potassium Chloride Carbon Dioxide Anion Gap BUN Creatinine Estimated GFR/1.73 m2 Glucose Calcium Magnesium 2.1 Total Bilirubin AST ALT Alkaline Phosphatase Troponin I < 0.05 C-Reactive Protein Total Protein Albumin Lipase Urine Color Urine Clarity Urine pH Ur Specific [place] Urine Protein Urine Ketones Urine Blood Urine Nitrite Urine Bilirubin Urine Urobilinogen Ur Leukocyte Esterase Urine RBC Urine WBC Ur Epithelial Cells Urine Crystals Urine Bacteria Urine Casts Urine Mucus Ur Culture Indicated? Urine Glucose COVID-19 Source SARS-CoV-2 (PCR) Influenza Type A (PCR) Influenza Type B (PCR) RSV (PCR) 11/05/20 11/05/20 11/05/20 12:03 12:10 14:23 WBC RBC Hgb Hct MCV MCH MCHC RDW Plt Count MPV Immature Gran % Neutrophils % Band Neutrophils % Lymphocytes % Atypical Lymphs % Monocytes % Eosinophils % Basophils % Metamyelocytes % Myelocytes % Promyelocytes % Other Cells % Nucleated RBC % Absolute Neutrophils Absolute Lymphocytes Absolute Monocytes Absolute Eosinophils Absolute Basophils RBC Morphology Polychromasia Hypochromasia Poikilocytosis Basophilic Stippling Anisocytosis Microcytosis Macrocytosis Spherocytes Tear Drop Cells Ovalocytes Stomatocytes Ross-Kin[place]y Bodies Dino Cells/Echinocytes Acanthocytes (Spur) Schistocytes VBG Lactate Sodium Potassium Chloride Carbon Dioxide Anion Gap BUN Creatinine Estimated GFR/1.73 m2 Glucose Calcium Magnesium Total Bilirubin AST ALT Alkaline Phosphatase Troponin I Cancelled C-Reactive Protein Total Protein Albumin Lipase Urine Color Yellow Urine Clarity Clear Urine pH 6.0 Ur Specific [place] >= 1.030 H Urine Protein Negative Urine Ketones Negative Urine Blood Moderate H Urine Nitrite Negative Urine Bilirubin Negative Urine Urobilinogen 0.2 Ur Leukocyte Esterase Negative Urine RBC 0-2 Urine WBC 3-5 Ur Epithelial Cells Moderate Urine Crystals Negative Urine Bacteria Moderate Urine Casts Negative Urine Mucus Moderate Ur Culture Indicated? No/sq. contamination Urine Glucose Negative COVID-19 Source Nasopharyx SARS-CoV-2 (PCR) Negative Influenza Type A (PCR) Negative Influenza Type B (PCR) Negative RSV (PCR) Negative 11/06/20 06:15 WBC 5.22 D RBC 4.03 Hgb 11.7 D Hct 34.2 L D MCV 84.9 MCH 29.0 MCHC 34.2 RDW 11.5 L Plt Count 268 D MPV 9.8 Immature Gran % Neutrophils % Band Neutrophils % Lymphocytes % Atypical Lymphs % Monocytes % Eosinophils % Basophils % Metamyelocytes % Myelocytes % Promyelocytes % Other Cells % Nucleated RBC % Absolute Neutrophils Absolute Lymphocytes Absolute Monocytes Absolute Eosinophils Absolute Basophils RBC Morphology Polychromasia Hypochromasia Poikilocytosis Basophilic Stippling Anisocytosis Microcytosis Macrocytosis Spherocytes Tear Drop Cells Ovalocytes Stomatocytes Ross-Kinmundy Bodies Dino Cells/Echinocytes Acanthocytes (Spur) Schistocytes VBG Lactate Sodium Potassium Chloride Carbon Dioxide Anion Gap BUN Creatinine Estimated GFR/1.73 m2 Glucose Calcium Magnesium Total Bilirubin AST ALT Alkaline Phosphatase Troponin I C-Reactive Protein Total Protein Albumin Lipase Urine Color Urine Clarity Urine pH Ur Specific [place] Urine Protein Urine Ketones Urine Blood Urine Nitrite Urine Bilirubin Urine Urobilinogen Ur Leukocyte Esterase Urine RBC Urine WBC Ur Epithelial Cells Urine Crystals Urine Bacteria Urine Casts Urine Mucus Ur Culture Indicated? Urine Glucose COVID-19 Source SARS-CoV-2 (PCR) Influenza Type A (PCR) Influenza Type B (PCR) RSV (PCR)
[2020-11-06] MEDS: Albuterol 2.5 MG/3 ML INH SOLN VIAL UPD ×2 (09:08→13:07)
[2020-11-06 09:09] VITALS: PULSE 85; RESP 19; RESP 4; O2SAT 100
[2020-11-06] MEDS: LORazepam 0.5 MG TAB PO (09:21)
--- NOTE | 2020-11-06 09:37 | PDOC.CMIN ---
- If Service Date Differs Date of service: 11/06/20 Time of Service: 09:37 Care Management Initial Assess REASON FOR HOSPITALIZATION:: Endometriosis and abdominal PAST MEDICAL HISTORY/PAST SURGICAL HISTORY:: Medical History. Asthma. Endometriosis. Diagnosed at age 16. Treated with both medical and surgical therapy. Hypertension. Rx with metoprolol. Tobacco use. Surgical History (Updated 11/05/20 @ 16:14 by Felicitas Mary MD). S/P laparoscopic appendectomy (~10/26/20). [place]: acute appendicitis and enometriosis. S/P right oophorectomy. for endometriosis PREVIOUS FUNCTIONAL STATUS/SOCIAL/FAMILY SUPPORTS:: Coco lives in [place] with her mother in a single family home. 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 CURRENT FUNCTIONAL STATUS:: Coco was sitting up in bed when CM met with her. She was polite and agreeable to conversation but was also obviously uncomfortable. She shared that she has been sick for the past 2 weeks and that the pain has been intolerable. Coco verbalized that she had been operated on at [facility] for appendicitis and was never told that they found it involved endometriosis. She had been treated in the past for this and shared how debilitating it can be. ADVANCE DIRECTIVES:: none on file Has patient been provided with info about the portal/API?: Yes Did the patient sign up for the portal?: No CODE STATUS:: Full Code INSURANCE COVERAGE / FINANCIAL ISSUES:: BS CURRENT HOME/COMMUNITY SERVICES/EQUIPMENT:: none PRIMARY CARE PHYSICIAN:: Cary Calles POTENTIAL DISCHARGE NEEDS:: Follow up with ASSISTANT WOMENS VOLLEYBALL COACH, PCP and discharge plan of care PATIENT/FAMILY EDUCATION NEEDS:: Discharge plan, limitations, follow up plan, Ask Me Three TRANSPORTATION:: via private vehicle with family PLAN:: Coco will likely be discharged home with no new services. She will follow up with her community providers and plan of care and transport with family. CM niko continue to support patient, family and discharge planning needs.
[2020-11-06 10:29] LABS: Gentamicin, Random 0.5 ug/mL (1.9-8.0)
[2020-11-06] MEDS: Bisacodyl 5 MG TABEC PO (10:39)
--- NOTE | 2020-11-06 12:45 | NUR.NOTE ---
Nursing Note: 11/05/20 6015- unable to put 0 as continuous rate on hydromorphone foreign banknote teller trader pump. called [facility] pharmacy for after hours, they were unsure of what to do. Said to contact our pharmacy in the morning. documented in worklist under foreign banknote teller trader/cadd. verified by 3 different nurses before starting (Monet Vieira, Patel Bennett, and Luigi Benítez). charge nurse Mouna Curtis notified. 11/06/20- pharmacy called by nurse, said they were trying to figure it out. IS contacted. Jorge Alberto tried to figure out if it was a [employer] [address] issue. overall decision- put 1ml/hr so it at least verifies the pump is running and in the MAR. Patrick from pharmacy to be notified after this. Monet Vieira RN
[2020-11-06 13:08] VITALS: PULSE 95; RESP 1; RESP 20; O2SAT 97
--- NOTE | 2020-11-06 14:31 | PHA.REVIEW ---
Pharmacy Admission Review - Admission Clinical Review (Last Updated 11/06/20 @ 09:06 by Jasmin Gan MD) Endometriosis (Acute) Asthma (Acute) Tachycardia (Acute) Hypertension (Acute) Tobacco use (Acute) Abdominal pain (Acute) No Known Allergies Allergy (Unverified 11/05/20 11:09) Height 5 ft 4 in Weight 80.6 kg - Comments Comments/Follow Ups: Current abx regimen: Cefoxitin 2gm q6h + clindamycin 900mg q8h + Gentamycin 240mg q24h -- treating presumed pelvic inflammatory disease - Renal Dosing Renal Dosing: BUN 17 mg/dL (7-18) 11/05/20 11:25 Creatinine 0.8 mg/dL (0.55-1.02) 11/05/20 11:25 Medications needing adjustments: Reviewed - Anticoagulation Anticoagulation: Hgb Cancelled 11/06/20 Unknown Hct Cancelled 11/06/20 Unknown Plt Count Cancelled 11/06/20 Unknown Creatinine 0.8 mg/dL (0.55-1.02) 11/05/20 11:25 DVT Prohphylaxis: N/A Therapeutic Anticoagulation: N/A - Opiate Usage Evaluate Pain Scale/Pains Meds: Reviewed (dilaudid INTERNAL AUDIT MANAGER -- NOT running at a continuous rate, there is a software issue with [employer]-IS is aware) Scheduled Bowel Reg ordered if on Opiates?: No (monitor, assess 48hrs) - Relevant Labs Sodium 137 mmol/L (136-145) 11/05/20 11:25 Potassium 3.4 mmol/L (3.5-5.1) L 11/05/20 11:25 Chloride 100 mmol/L (98-107) 11/05/20 11:25 Magnesium 2.1 mg/dL (1.8-2.4) 11/05/20 11:25 C-Reactive Protein 0.82 mg/dL (0.0-0.3) H 11/05/20 11:25 Electrolytes, C-Reactive P, ESR: Reviewed - DM Control DM Control: Glucose 104 mg/dL (74-106) 11/05/20 11:25 Insulin Dosing: N/A - Heart Failure/OR Heart Failure/OR: Troponin I Cancelled 11/05/20 14:23 EF%, THAIS's, B-Blockers, Diuretics: N/A - BP Control BP Control: Blood Pressure 101/68 If elevated: N/A - Qtc Review If Elevated: N/A - IV to PO Switch IV Medications: Reviewed - Home Meds Relevent Home Meds Not ordered & why?: all ordered (asmanex instead of flovent); note: recent rx history also includes cetirizine, lactulose, Orilissa - Current meds Current Medication Order Review: Reviewed - Comments Comments/Follow Ups: Pt's OB-AUTOMOTIVE GLASS SPECIALIST does not feel this is an exacerbation of endometriosis, plan is to continue to treatment for presumed PID; tachycardia has resolved with pain control
--- NOTE | 2020-11-06 14:55 | CHAPLAIN ---
Coco was in bed, on her phone when I visited. She became tearful why we were talking and said she has anxiety and is upset that her mom can't be here with her. She pulled the sheets up covering some of her face at times. Coco said she is waiting to hear back from Dr. Gan about what the next steps will be. I explained my role and offered support, and also offered to sit with her at anytime if she wanted company. Dr. Gan arrived as I was leaving.
[2020-11-06 15:25] VITALS: BP 105/65; PULSE 95; RESP 18; TEMP 36.5; O2SAT 98
--- NOTE | 2020-11-06 16:18 | W.PM.PROGNOT ---
Date of Service Date of service: 11/06/20 Time of Service: 16:18 Assessment and Plan Assessment and plan (1) Abdominal pain: Status: Acute Assessment and plan: Persists. Plan is to transition the patient to oral Dilaudid tomorrow morning. Stable vital signs. Normal CBC. Qualifiers: Abdominal location: lower abdomen, unspecified Qualified Code(s): R10.30 - Lower abdominal pain, unspecified (2) Asthma: Status: Acute Assessment and plan: Decreased wheezing. Patient will continue use albuterol nebulizer as needed. Subjective Subjective Patient reports: still having pain, tolerating a regular diet, voiding w/o difficulty, flatus, no bowel movement, nausea (Improved) and other (Feels shaky when out of bed to the bathroom.) Interval history since last seen: This patient was seen this morning she had a pelvic ultrasound. The official interpretation is currently pending however from my inspection of the images it appears that she has a normal uterus and bilateral adnexa without evidence of masses, torsion and pelvic free fluid. Afebrile today WBC normal she continues to have abdominal pain and discussion with the patient the plan is to transition her to Dilaudid tomorrow. Exam Const General: no acute distress and anxious Orientation: alert, awake and oriented x3 Objective Last Vital Signs Temp 97.7 F 11/06/20 15:25 Pulse 95 H 11/06/20 15:25 Resp 18 11/06/20 15:25 BP 105/65 11/06/20 15:25 Pulse Ox 98 11/06/20 15:25 Laboratory Results - last 24 hr 11/06/20 11/06/20 11/06/20 06:15 10:09 Unknown WBC 5.22 D Cancelled RBC 4.03 Cancelled Hgb 11.7 D Cancelled Hct 34.2 L D Cancelled MCV 84.9 Cancelled MCH 29.0 Cancelled MCHC 34.2 Cancelled RDW 11.5 L Cancelled Plt Count 268 D Cancelled MPV 9.8 Cancelled Random Gentamicin 0.5 L
[2020-11-06] MEDS: Acetaminophen 500 MG TAB 1000 MG PO (18:41)
[2020-11-06] MEDS: Gabapentin 100 MG CAP PO (21:50)
[2020-11-06 23:31] VITALS: BP 106/63; PULSE 77; RESP 18; TEMP 36.5; O2SAT 97
[2020-11-07] MEDS: Acetaminophen 500 MG TAB 1000 MG PO ×4 (00:08→18:46)
[2020-11-07] MEDS: Simethicone 80 MG CHEW 40 MG PO (00:08)
[2020-11-07] MEDS: cefOXitin 2 GM in Normal Saline 50 ML IVPB ×4 (02:19→20:01)
[2020-11-07] MEDS: CLINDAMYCIN 900 MG/50 ML BAG 50 MG IVPB ×3 (03:09→18:46)
[2020-11-07] MEDS: Ketorolac 30 MG/ML VIAL IVP (04:51)
[2020-11-07] MEDS: Normal Saline Flush 10 ML SYR IVP ×2 (04:52→17:03)
[2020-11-07] MEDS: Omeprazole 20 MG CAPCR PO (06:23)
[2020-11-07] MEDS: Ondansetron 4 MG/2 ML VIAL IVP ×2 (06:24→17:04)
[2020-11-07 07:03] LABS: HCT 36.8 % (36.0-46.0); HGB 12.2 g/dL (11.2-15.7); MCH 28.7 pg (27.0-33.0); MCHC 33.2 % (32.0-36.0); MCV 86.6 fL (80-95); MPV 9.6 fL (8.0-11.0); Platelet Count 285 10^3/uL (130-400); RBC 4.25 10^6/uL (3.93-5.22); RDW 11.5 % (11.7-14.6); RDW-SD 36.3 fL
[2020-11-07 07:26] VITALS: BP 103/66; PULSE 59; RESP 17; TEMP 36.4; O2SAT 96
[2020-11-07 07:36] VITALS: RESP 12
[2020-11-07 07:39] VITALS: O2SAT 95
[2020-11-07] MEDS: Mometasone 220 MCG 14 DOSE INHALER 1 PUFF IH (07:44)
[2020-11-07] MEDS: Nicotine 21 MG/24 HR PATCH TD (08:16)
[2020-11-07] MEDS: Lactated Ringers 1,000 ML 125 ML IV ×2 (08:16→20:59)
[2020-11-07 10:29] LABS: Gentamicin, Random 0.4 ug/mL (1.9-8.0)
--- NOTE | 2020-11-07 11:21 | W.NUTRFU ---
Date of service: 11/07/20 Time of Service: 11:21 Nutritional Follow up NOTE: 25 year old female s/p appendendectomy 10/26/20, now with endometriosis. BMI indicates mild obesity. Following Regular Meal Plan with adequate intake. Not at nutritional risk. Time Spent in Nutritional Counseling and Treatment: 0
[2020-11-07] MEDS: HYDROmorphone 2 MG TAB PO ×2 (11:30→15:39)
[2020-11-07] MEDS: Ibuprofen 600 MG TAB PO ×3 (11:31→22:02)
--- NOTE | 2020-11-07 12:47 | PDOC.CMPRO ---
- If Service Date Differs Date of service: 11/07/20 Time of Service: 12:47 Care Management Progress Note S/O: Coco was sitting up in bed when CM met with her. She engaged readily with CM and shared that she continues to have pain. She has been changed from IV to PO Dilaudid for pain control and she maintains that the pills are not effective. She stated that she intends to speak with her provider when she comes in and ask for a different oral pain medication. Coco asked CM to assist with the completion of Advanced Directives, so this afternoon CM returned to do so. The document was faxed to [facility] as well as the [facility] and Coco was given the original and several copies. CM sent a hard copy to Coco's PCPP as well. A: Coco is a 25 year old woman admitted on 11/05/20 with abdominal pain P: Coco will likely be discharged home with no new services. She will follow up with her community providers and plan of care and transport with family. CM niko continue to support patient, family and discharge planning needs.
[2020-11-07 14:50] LABS: Chlamydia Result Negative (Negative); GC Result Negative (Negative)
[2020-11-07 15:32] VITALS: BP 118/73; PULSE 64; RESP 17; TEMP 37; O2SAT 99
--- NOTE | 2020-11-07 16:16 | W.PM.PROGNOT ---
Date of Service Date of service: 11/07/20 Time of Service: 16:17 Assessment and Plan Assessment and plan (1) Abdominal pain: Status: Acute Assessment and plan: Continued discomfort despite ABX. Did not tolerate transition to PO narcotics and NSAIDs. Will change from Dilaudid to Oxycodone and continue PO Ibuprofen Qualifiers: Abdominal location: lower abdomen, unspecified Qualified Code(s): R10.30 - Lower abdominal pain, unspecified (2) Tobacco use: Status: Acute Assessment and plan: Switched from Nicotine patch to Nicotine inhaler (3) Hypertension: Status: Acute Assessment and plan: Improved. Taking Metoprolol. Qualifiers: Hypertension type: essential hypertension Qualified Code(s): I10 - Essential (primary) hypertension (4) Tachycardia: Status: Acute Assessment and plan: Resolved. (5) Asthma: Status: Acute Assessment and plan: Wheezing less. Pt using MDI and no need for Albuterol nebulizer today. Qualifiers: Asthma severity: mild Asthma persistence: intermittent Asthma complication type: with acute exacerbation Qualified Code(s): J45.21 - Mild intermittent asthma with (acute) exacerbation Subjective Subjective Patient reports: still having pain (RUQ pain that extends into RLQ. Pain beneath bilateral ribs), tolerating a regular diet, voiding w/o difficulty, diarrhea (yesterday of Dulcolax) and nausea Interval history since last seen: HD 3. Admitted to Perinatal Technician service with diffuse, intractable abdominal pain. Dilaudid ARTS AND CRAFTS TEACHER for pain control. General Surgery consulted and did not find a GI or infectious disease process. Of note Dr. Ochoa wrote Rx in Gabapentin and Flexeril on 11/06/20. Differential diagnosis: Infection. Pt was mildly febrile on day of admission. No fever since. Day 3 of triple IV Abx. Neg BCx, Normal WBC since HD1. Antibiotics have not made an impact on pt's abd pain. Imaging: CT and pelvic u/s unremarkable. Endometriosis. Longstanding diagnosis. Has Nexplanon in place for cycle control. Normally amenorrheic.Had some breakthrough bleeding after her laparoscopic appendectomy ~ 2w ago. States that this pain is different from her usual endometriosis pain. I spoke with Dr. Espinoza her OB-Perinatal Technician regarding her admission. He plans to see pt after discharge on 11/13/20. Exam Narrative Exam Narrative: HD 3. Discontinued Dilaudid ARTS AND CRAFTS TEACHER and IV Toradol this am. Pt receiving 2mg Dilaudid PO and Ibuprofen PRN. Pt reported no relief from PO analgesia. Continued to have limited mobility 2/2 pain. Const General: in distress (Has difficulty moving up in bed 2/2 abd pain. ) moderate Nutritional Appearance: overweight Orientation: alert, awake and oriented x3 Resp Effort & Inspection: normal respiratory effort Auscultation: wheezes (L>R sided. scattered.) expiratory wheezes Cardio Rate: regular rate Rhythm: regular rhythm GI Inspection: normal to inspection, no abdominal wall ecchymosis and scar (trochar sites well healed. skin glue remains over incisions) Palpation: no hepatosplenomegaly, guarding in the LLQ and in the RLQ, hepatosplenomegaly, no masses, not rigid and tender Rectal Exam - female: deferred General: deferred Skin General skin exam: no rashes or lesions noted Extrem General: normal to inspection (SCDs in place), full ROM and capillary refill normal Psych Appearance: grossly normal Mental Status: mental status grossly normal Speech and Movement: speech and movement normal Mood: anxious mood Objective Last Vital Signs Temp 98.6 F 11/07/20 15:32 Pulse 64 11/07/20 15:32 Resp 17 11/07/20 15:32 BP 118/73 11/07/20 15:32 Pulse Ox 99 11/07/20 15:32 Laboratory Results - last 24 hr 11/05/20 11/07/20 11/07/20 17:00 06:45 10:04 WBC 6.90 D RBC 4.25 Hgb 12.2 Hct 36.8 MCV 86.6 MCH 28.7 MCHC 33.2 RDW 11.5 L Plt Count 285 MPV 9.6 Random Gentamicin 0.4 L Chlamydia DNA Probe Negative Chlamydia/GC DNA Source Not Applicable N.gonorrhoeae DNA Probe Negative
[2020-11-07] MEDS: oxyCODONE 10 MG TAB PO ×2 (16:52→22:09)
[2020-11-07] MEDS: Gabapentin 100 MG CAP PO (22:02)
[2020-11-08 00:30] VITALS: BP 92/60; PULSE 85; RESP 16; TEMP 36.8; O2SAT 94
[2020-11-08] MEDS: Acetaminophen 500 MG TAB 1000 MG PO ×4 (00:55→17:36)
[2020-11-08] MEDS: cefOXitin 2 GM in Normal Saline 50 ML IVPB ×4 (01:36→19:33)
[2020-11-08] MEDS: CLINDAMYCIN 900 MG/50 ML BAG 50 MG IVPB ×3 (02:29→17:36)
[2020-11-08 02:31] VITALS: BP 102/67
[2020-11-08] MEDS: oxyCODONE 10 MG TAB PO ×5 (02:31→20:13)
[2020-11-08] MEDS: Albuterol HFA 8 GM 60 PUFF INH IH (05:38)
[2020-11-08] MEDS: Ibuprofen 600 MG TAB PO ×4 (05:38→22:30)
[2020-11-08] MEDS: Omeprazole 20 MG CAPCR PO (05:38)
[2020-11-08] MEDS: Lactated Ringers 1,000 ML 125 ML IV ×2 (05:42→17:36)
[2020-11-08] MEDS: Mometasone 220 MCG 14 DOSE INHALER 1 PUFF IH (08:08)
[2020-11-08 08:16] VITALS: BP 110/53; PULSE 79; RESP 16; TEMP 37.1; O2SAT 96
--- NOTE | 2020-11-08 09:52 | PGE_ITS ---
Date of Service Date of service: 11/08/20 Time of Service: 09:53 Assessment and Plan Assessment and plan (1) Endometriosis: Status: Acute Assessment and plan: Patient has appoint with Dr. Espinoza [employer] on 11/13/2020 for follow-up visit. It is unclear if her abdominal pain is flareup of her endometriosis or other infectious etiology. She currently is amenorrheic. (2) Abdominal pain: Status: Acute Assessment and plan: Her pain continues to be an issue. She has some relief with oxycodone but requires it every 4 hours. I discussed the plan with her today that we would continue the oxycodone and NSAIDs and plan for discharge tomorrow with enough pain medication to keep her comfortable until she has her follow-up appointment with her [employer]. The plan is to continue her on the IV antibiotic until tomorrow morning as then switch her to oral antibiotics for discharge. Qualifiers: Abdominal location: lower abdomen, unspecified Qualified Code(s): R10.30 - Lower abdominal pain, unspecified (3) Asthma: Status: Acute Assessment and plan: Wheezes improved. Qualifiers: Asthma severity: mild Asthma persistence: intermittent Asthma complication type: with acute exacerbation Qualified Code(s): J45.21 - Mild intermittent asthma with (acute) exacerbation (4) Hypertension: Status: Acute Assessment and plan: Blood pressure has normalized. Plan is to hold her metoprolol until discharge to avoid hypotension and dizziness. Qualifiers: Hypertension type: essential hypertension Qualified Code(s): I10 - Essential (primary) hypertension Subjective Subjective Patient reports: still having pain (RUQ pain that extends into RLQ. Pain beneath bilateral ribs), tolerating a regular diet, voiding w/o difficulty, diarrhea (Began last evening frequent loose stools.), nausea and other (Has intermittent wheezing. Patient has been using a Nicotrol inhaler.) Interval history since last seen: HD 4. Admitted to Reimbursement Director service with diffuse, intractable abdominal pain. Dilaudid [employer] MANAGER for pain control. General Surgery consulted and did not find a GI or infectious disease process. Of note Dr. Ochoa wrote Rx in Gabapentin and Flexeril on 11/06/20. Differential diagnosis: Infection. Pt was mildly febrile on day of admission. No fever since. Day 4 of triple IV Abx. Neg BCx, Normal WBC since HD1. Imaging: CT and pelvic u/s unremarkable. Endometriosis. Longstanding diagnosis. Has Nexplanon in place for cycle control. Normally amenorrheic. Had breakthrough bleeding after her laparoscopic appendectomy ~ 2w ago. States that this pain is different from her usual endometriosis pain. I spoke with Dr. Espinoza her OB-Reimbursement Director regarding her admission. He plans to see pt after discharge on 11/13/20. Abdominal pain. Patient appears to be more comfortable this morning than any of the previous mornings. She is wearing clothes and requesting to take a shower. Has difficulty ambulating for any extended period of time or coughing both of which exacerbate her diffuse abdominal pain. Exam Narrative Exam Narrative: HD 4. Discontinued Dilaudid [employer] DEPARTMENT MANAGER and IV Toradol yesterda. Pt received 2mg Dilaudid PO and Ibuprofen PRN. Pt reported no relief from PO analgesia. Continued to have limited mobility 2/2 pain. Narcotic was changed to 10 mg of oxycodone every 4 hours with continued ibuprofen every 6 hours as needed. Patient reports improved pain control with the oxycodone although not complete relief. Const General: no acute distress (Sitting in bed semi-Fowlers position. Dressed.) Nutritional Appearance: overweight Orientation: alert, awake and oriented x3 Resp Effort & Inspection: normal respiratory effort Auscultation: no wheezes Cardio Rate: regular rate Rhythm: regular rhythm GI Inspection: normal to inspection, no abdominal wall ecchymosis and scar (trochar sites well healed. skin glue remains over incisions) Palpation: no hepatosplenomegaly, no guarding, hepatosplenomegaly, no masses, not rigid and tender Rectal Exam - female: deferred General: deferred Skin General skin exam: no rashes or lesions noted Extrem General: normal to inspection (SCDs in place), full ROM and capillary refill normal Psych Appearance: grossly normal Mental Status: mental status grossly normal Speech and Movement: speech and movement normal Mood: anxious mood Objective Last Vital Signs Temp 98.8 F 11/08/20 08:16 Pulse 79 11/08/20 08:16 Resp 16 11/08/20 08:16 BP 110/53 L 11/08/20 08:16 Pulse Ox 96 11/08/20 08:16 Laboratory Results - last 24 hr 11/05/20 11/07/20 17:00 10:04 Random Gentamicin 0.4 L Chlamydia DNA Probe Negative Chlamydia/GC DNA Source Not Applicable N.gonorrhoeae DNA Probe Negative
--- NOTE | 2020-11-08 14:08 | PDOC.CMPRO ---
- If Service Date Differs Date of service: 11/08/20 Time of Service: 14:08 Care Management Progress Note S/O: Coco was sitting up in bed when CM met with her. She was pleasant and engaged in conversation. She reported that her pain is more controlled than it was yesterday, but she is still having a difficult time managing it. She reported that, per MD, she will likely require a hysterectomy, and she is agreeable to this as she does not want to live in constant pain. She stated that she did want to have children in the future, but is assured that there are other ways to have children. Her main focus right now is becoming pain free. She stated that she is out of work right now, but she is living with her mother, so it is less stressful than if she had her own place with more bills to worry about. CM will continue to follow. A: Coco is a 25 year old woman admitted on 11/05/20 with abdominal pain P: Coco will likely be discharged home with no new services. She will follow up with her community providers and plan of care and transport with family. CM niko continue to support patient, family and discharge planning needs.
[2020-11-08] MEDS: Cyclobenzaprine 10 MG TAB PO ×2 (14:24→22:33)
[2020-11-08 15:43] VITALS: BP 112/50; PULSE 76; RESP 18; TEMP 37.1; O2SAT 96
[2020-11-08] MEDS: Loperamide 2 MG CAP PO (19:33)
[2020-11-08 21:21] VITALS: BP 114/79; PULSE 76; RESP 18; TEMP 36.4; O2SAT 94
[2020-11-08] MEDS: Gabapentin 100 MG CAP PO (22:31)
[2020-11-08 23:35] VITALS: BP 103/58; PULSE 78; RESP 16; TEMP 36.7; O2SAT 96
[2020-11-09] MEDS: CLINDAMYCIN 900 MG/50 ML BAG 50 MG IVPB ×2 (00:54→09:31)
[2020-11-09] MEDS: Acetaminophen 500 MG TAB 1000 MG PO ×3 (00:55→12:48)
[2020-11-09] MEDS: cefOXitin 2 GM in Normal Saline 50 ML IVPB ×2 (02:08→08:24)
[2020-11-09] MEDS: Ibuprofen 600 MG TAB PO ×2 (04:52→09:31)
[2020-11-09] MEDS: Omeprazole 20 MG CAPCR PO (04:53)
[2020-11-09] MEDS: oxyCODONE 10 MG TAB PO ×2 (05:00→09:31)
[2020-11-09] MEDS: Lactated Ringers 1,000 ML 125 ML IV (05:00)
[2020-11-09] MEDS: Mometasone 220 MCG 14 DOSE INHALER 1 PUFF IH (08:10)
[2020-11-09] MEDS: Cyclobenzaprine 10 MG TAB PO ×2 (08:24→12:47)
[2020-11-09 08:25] VITALS: BP 114/75; PULSE 80; RESP 17; TEMP 36.5; O2SAT 97
[2020-11-09] MEDS: Loperamide 2 MG CAP PO (09:35)
--- NOTE | 2020-11-09 09:53 | W.PM.DS.N ---
Date of service: 11/09/20 Time of Service: 09:54 DS: Diagnosis Discharge Diagnosis (1) Endometriosis: Status: Acute Asessment and Plan: Longstanding history with multiple laparoscopic procedures in the past. Unclear if her recent episode of pelvic pain was exacerbation of preexisting endometriosis, or a pelvic infection. Unclear evidence for definitive diagnosis. Imaging, labs normal. Patient treated base on subjective complaints and physical exam finding. Pt has a f/u appointment with Dr. Espinoza at [facility] on 11/13/20. Pt has stopped breakthrough bleeding since admission and has Nexplanon device in place for menstrual suppression. (2) Abdominal pain: Status: Acute Asessment and Plan: Pain has improved during time that she has been hospitalized. Subjectively c/o pain 8/10 but is ambulating and performing ADLs with assistance. Continues to have a narcotic requirement. I have agreed to discharge her to home with Rx for Oxycodone with instructions to decrease dosage as the week progresses. NSAIDs strongly encouraged. Has remained afebrile with stable VS since admission. Imaging studies unremarkable. Diarrhea during hospitalization result of one dose of Dulcolax which was then held for remainder of hospitalization. Pt then treated with Immodium for diarrhea presumed to be secondary to antibiotic therapy. Will switch pt to oral antibiotics to take at home. (3) Asthma: Status: Acute Asessment and Plan: Stable during hospitalization. Will continue preexisting treatment regime. Encouraged to f/u with PCP regarding tobacco use. (4) Hypertension: Status: Acute Asessment and Plan: Stable. Pt has been taking antihypertensive while hospitalized. (5) Tobacco use: Status: Acute Asessment and Plan: Given Nicotine patch and changed to Nicotine inhaler during inpatient stay. Encouraged to quit. Discharge Plan Disposition Patient Disposition: HOME Condition: Fair Discharge Details Reason For Visit: PELVIC PAIN, POSSIBLE PID Admit Date/Time: 11/05/20 16:58 Admit Provider: Jasmin Gan Attending Provider: Jasmin Gan Primary Care Provider: Tara,[facility] Hospital Course Hospital Course: Pt is a 25yo G0 female who was admitted to Director Plans service at [facility] after presenting to [facility] ED with report of intractable, diffuse abdominal pain and low grade fever with normal WBC. She had evaluation by general surgeon, had a CT of abdomen and pelvis which ruled out abdominal abscess, bowel injury or vascular event. She was admitted to [employer] service with diagnosis of presumed PID. Rx with IV Cefoxitin, Clindamycin and Gentamycin for total of 5 days. Pain gradually decreased but patient continued to have narcotic requirement at the time of discharge. Pelvic ultrasound was unremarkable. Infection. Pt was mildly febrile on day of admission. No fever since. Day 4 of triple IV Abx. Neg BCx, Normal WBC since HD1. Imaging: CT and pelvic u/s unremarkable. Endometriosis. Longstanding diagnosis. Has Nexplanon in place for cycle control. Normally amenorrheic. Had breakthrough bleeding after her laparoscopic appendectomy ~ 2w ago. States that this pain is different from her usual endometriosis pain. I spoke with Dr. Espinoza her OB-Director Plans regarding her admission. He plans to see pt after discharge on 11/13/20. Abdominal pain. Patient appears to be more comfortable this morning than any of the previous mornings. She is wearing clothes and requesting to take a shower. Has difficulty ambulating for any extended period of time or coughing both of which exacerbate her diffuse abdominal pain. Home Meds and New Rx's Prescriptions: No Action Nexplanon 68 MG implant 68 mg RF: 0 omeprazole 20 mg capsule,delayed release(DR/EC) 20 mg PO DAILY PRN PRNRF: 0 metoprolol succinate 25 mg tablet extended release 24 hr 25 mg PO DAILY RF: 0 Flovent HFA 110 mcg/actuation HFA aerosol inhaler 2 puff INHALATION DAILY RF: 0 albuterol sulfate [ProAir HFA] 90 mcg/actuation Hfa Aerosol Inhaler 2 puff INHALATION Q6H PRNRF: 0 Discharge Instructions Instructions: Endometriosis (DC), Hypertension (DC) Additional Instructions: take oxycodone 10mg every 4-6 hours as needed along with Ibuprofen 600mg every 6 hours as needed. Tylenol 2 tablets of 325mg every 6 hours or one tablet of 500mg tablet for pain. Take Immodium after every episode of diarrhea with maximum of 5 tablets a day. Keep your appointment with Dr. Espinoza on 11/13/20. Stand Alone Forms: Nursing Discharge Form Activity:: Activity as Tolerated Equipment/Supplies:: No Equipment Needed Diet:: As Tolerated Discharge Orders Discharge Orders: Discharge Order (Routine); Ordered 11/09/20 Ordered By: Jasmin Gan DS: Summary Time Spent with Patient providing and/or coordinating discharge services: Less than 30 minutes Status at Discharge Functional status at discharge: independent ambulation Overall status at discharge: patient is not back to baseline Mental Status: mental status grossly normal Speech and Movement: speech and movement normal Mood: congruent mood Affect: normal affect Exam Narrative Exam Narrative: Appears more comfortable than yesterday. Is anxious to go home. Const General: no acute distress Nutritional Appearance: overweight Orientation: alert, awake and oriented x3 Resp Effort & Inspection: normal respiratory effort Cardio Rate: regular rate Rhythm: regular rhythm GI Inspection: normal to inspection and scar (Skin glue remains over trocar incisions) Palpation: soft and tender (Diffuse with increased tenderness over suprapubic region) Auscultation: normal bowel sounds Rectal Exam - female: deferred General: deferred Skin General skin exam: no rashes or lesions noted Extrem General: normal to inspection and full ROM Psych Appearance: grossly normal Mental Status: mental status grossly normal Speech and Movement: speech and movement normal Mood: congruent mood Affect: normal affect DS: Data Vitals/I&O Vitals and I&O: Vital Signs Temperature 97.7 F 11/09/20 08:25 Temperature Source Temporal Artery Scan 11/09/20 08:25 Pulse 80 11/09/20 08:25 Pulse Rhythm Regular 11/09/20 05:28 Pulse 106 H 11/05/20 17:15 Respiratory Rate 17 11/09/20 08:25 Respiratory Effort Non-Labored 11/09/20 05:28 Respiratory Depth Normal 11/09/20 05:28 Respiratory Pattern Normal 11/09/20 05:28 Blood Pressure 114/75 11/09/20 08:25 Blood Pressure Mean 77 11/05/20 17:15 Blood Pressure Position Sitting 11/05/20 11:01 Pulse Oximetry 97 11/09/20 08:25 Oxygen Delivery Method Room Air 11/09/20 08:25 Oxygen Flow Rate 0 11/09/20 08:25 Pain Level 9 11/09/20 09:31 Comment 11/08/20 00:30 Intake & Output 11/08/20 11/08/20 11/09/20 11:59 23:59 11:59 Intake Total 1760 / 4396.0 2636.0 / 4396.0 1100 / 1100 Output Total 400 / 750 350 / 750 Balance 1360 / 3646.0 2286.0 / 3646.0 1100 / 1100 Intake: IV 1200 / 2456.0 1256.0 / 2456.0 1100 / 1100 Oral 560 / 1940 1380 / 1940 Output: Urine 400 / 750 350 / 750 Other: Urine Color Yellow Yellow Yellow Urine Appearance Clear Clear Clear Urine Odor Normal Stool Size Small Small Moderate Stool Characteristics Liquid Liquid Soft Brown Brown Voiding Methods Toilet Bedside Commode Toilet Data Completed and Pending Labs on day of discharge: Preliminary micro results at discharge 11/05/20 12:04 Blood Culture - Preliminary Blood NO GROWTH 72 HOURS 11/05/20 11:25 Blood Culture - Preliminary Blood NO GROWTH 72 HOURS [facility] Medical History Asthma Endometriosis Diagnosed at age 16. Treated with both medical and surgical therapy. Hypertension Rx with metoprolol Tobacco use Surgical History (Updated 11/06/20 @ 17:47 by Eusebia Ochoa DO) S/P laparoscopic appendectomy (~10/26/20) [place]: acute appendicitis and enometriosis S/P right oophorectomy for endometriosis Social History (Updated 11/05/20 @ 18:25 by Jasmin Gan MD) Smoking/Tobacco Use Status: Current every day Tobacco Type: cigarettes Smoking risk assessment performed?: Yes Drug use: Never Household members: family and other Details: Return from [place] 07/2020, was attending cosmetology school. Lives with mom. 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 Sexually active: No (Has not been in a relationship for 3 years) Do you feel safe at home: Yes Do you feel safe in your relationship?: Yes History History 0 Para Hx # Term Pregnancies Multiple births Hx # Pregnancies Ectopic pregnancies AB induced Hx Number of Living Children AB spontaneous
--- NOTE | 2020-11-09 15:57 | PDOC.CMDIS ---
- If Service Date Differs Date of service: 11/09/20 Time of Service: 15:57 LACE Index Scoring Tool - Questions: Length of Stay (in days): 4 - 6 Acuity (Admit via E.D.?): Yes E.D. Visits: 2 - Answers: Total Score: 9 Risk of Readmission: Low Risk Care Management Discharge Reason for Hospitalization: Endometriosis and abdominal Discharge Plan: Coco will return home with no services at this time. Her mother will drive her home via private vehicle. She will follow up with her PCP and discharge plan of care. She is happy to be going home. Patient/Family Education Needs: Review discharge instructions regarding activity levels and medications, discussion of self care needs.
== END 2020-11-09 12:50 | disposition home or self-care (01) ==
LOC: ER 17:21 → MS 17:31
PROVIDERS: Admitting Provider Obstetrics & Gynecology Gynecology; Emergency Provider Physician Assistant; Visit Provider Obstetrics & Gynecology Gynecology
DX: R10.2 Pelvic and perineal pain (principal); J45.21 Mild intermittent asthma with (acute) exacerbation; N80.8 Other endometriosis; R10.30 Lower abdominal pain, unspecified; R19.7 Diarrhea, unspecified; I10 Essential (primary) hypertension; F17.210 Nicotine dependence, cigarettes, uncomplicated; R00.0 Tachycardia, unspecified
CPT/HCPCS: 36415; 80053; 81025; 83690; 85027; 87040; 87491; 87591; 87637; 94640; 96361; 96365; 96375; 96376; 99221; 99224; 99231; 99232; 99238; 99253; 99285; 71046; 74177; 76830; 76856; 80170; 81003; 81015; 83605; 83735; 84484; 85025; 86140; 99284; G0378; J1580; J1885; J2270; J2405; J2543; J3010; J3490; J7613

== ENCOUNTER 2021-12-01 00:53 | Outpatient (CLI) | payer BC, SELFPAY ==
--- NOTE | 2021-12-01 13:00 | DI.MRI_ITS ---
Exam(s) MR ANGIO BRAIN WO CLINICAL HISTORY: imbalance, pulsatile tinnitus,ABNL AUDITORY PERCEPTION,H93.A9,H93.293. TECHNIQUE: 3D time of flight study COMPARISON: None. FINDINGS: Carotid Arteries: Petrous: Normal. Cavernous: Normal. Cerebral: Normal. Middle Cerebral Arteries: Right: No aneurysm or significant stenosis. Left: No aneurysm or significant stenosis. Anterior Cerebral Arteries: Right: No aneurysm or significant stenosis. Left: No aneurysm or significant stenosis. Vertebral Arteries: Right: No aneurysm or significant stenosis. Left: No aneurysm or significant stenosis. . Basilar Artery: No aneurysm or significant stenosis. Small Vessels: No evidence of beading. No aberrant vessels. IMPRESSION: Normal MRA examination of the [place] of [place]. DATA REPOSITORY:
--- NOTE | 2021-12-01 13:00 | DI.MRI_ITS ---
Exam(s) MR BRAIN WO/W EXAM: MR BRAIN WO/W CLINICAL HISTORY: Imbalance, pusitile tinnitus,,abnl auditory perception,h93.a9,r26.89. TECHNIQUE: Multiplanar multisequence MRI of the brain was performed. Additional thin T1 axial and c oronal pre and post gadolinium sequences through the level of the internal auditory canals. Addition al thin T2 space axial sequence through level of internal auditory canals. CONTRAST MATERIAL: IV Contrast: 15 ML of Dotarem contrast administered. COMPARISON: MR MR ANGIO BRAIN WO from 12/01/2021 FINDINGS: VENTRICLES AND EXTRA AXIAL SPACES: Normal in size and morphology for the patient's age. HEMORRHAGE: None. CEREBRAL PARENCHYMA: No focus of restricted diffusion to suggest acute infarct. No space-occupying le alex identified. Mild developmental asymmetry in the right frontal region. MIDLINE SHIFT: None. BRAINSTEM/CEREBELLUM: Normal. CALVARIUM: Normal. ENHANCEMENT: Normal arterial and venous enhancement. [place] of the will is vasculature maintain norm al flow voids. No suspicious enhancement identified. No abnormal cranial nerve enhancement. No CP angle mass. VISUALIZED PARANASAL SINUSES/MASTOIDS: Clear. OTHER FINDINGS: Vasculature normal in diameter. IMPRESSION: Unremarkable MRI of the brain. DATA REPOSITORY:
[2021-12-01] MEDS: Normal Saline Flush 10 ML SYR IVP (13:16)
[2021-12-01] MEDS: Gadoterate meglumine 20 ML VIAL 15 ML IVP (13:16)
== END 2021-12-01 01:13 ==
PROVIDERS: PCP Internal Medicine; Visit Provider Registered Nurse Maternal Newborn
DX: H93.A3 Pulsatile tinnitus, bilateral (principal); H93.293 Other abnormal auditory perceptions, bilateral; R26.89 Other abnormalities of gait and mobility
CPT/HCPCS: 70544; 70553

== ENCOUNTER 2025-01-29 13:06 | Emergency (ER) | payer MEDICAID, SELFPAY ==
[2025-01-29] VITALS (11 sets, daily range): BP systolic 124–154; BP diastolic 73–116; PULSE 85–126; RESP 13–22; TEMP 36.9–37.9; O2SAT 97–98
--- NOTE | 2025-01-29 13:45 | DI.MRI_ITS ---
Exam(s) MR THORACIC SPINE WO/W EXAM: MR THORACIC SPINE WO/W CLINICAL HISTORY: fever, tachy, hx harware removal 12/04. TECHNIQUE: Multiplanar multisequence MRI of the Thoracic spine was performed. CONTRAST MATERIAL: IV Contrast: 17 mL of Dotarem contrast administered. COMPARISON: CR XR CHEST 2V PA LATERAL from 11/05/2020 FINDINGS: The examination is limited due to patient motion artifact. Bones: There is a old compression fracture deformity at L1 which was not present on the most recent e xamination of this area which was a CT scan from 11/05/2020. Alignment is satisfactory. Mild degenerat wilbert signal changes are seen in the mid thoracic spine. There is a focus of hyperintense T1 and T2 si gnal in the T9 vertebral body posteriorly likely reflecting a benign lesion such as a hemangioma or a benign fatty rest. Cord: The thoracic cord is normal size and signal intensity. No intrinsic cord lesion is present. Discs: No disc herniation or bulge is present. No significant central spinal canal or neural foramina l stenosis is seen in the thoracic spine. Soft tissues: There is mild edema seen in the soft tissues of the lower back but no focal fluid miguelito ection is seen to suggest an abscess. There is no evidence of suspicious enhancement. IMPRESSION: 1. Examination is limited due to patient motion artifact. 2. Mild edema in the soft tissues of the lower back but no focal fluid collection is seen. No eviden ce of an abscess. 3. No focal disc herniation, central spinal canal or neural foraminal stenosis is seen. 4. The preliminary [facility] report was reviewed. DATA REPOSITORY:
--- NOTE | 2025-01-29 13:45 | DI.MRI_ITS ---
Exam(s) MR LUMBAR SPINE WO/W EXAM: MR LUMBAR SPINE WO/W CLINICAL HISTORY: Pain, fever, hx hardware removal 11/2024. TECHNIQUE: Multiplanar multisequence MRI of the Lumbar Spine was performed. CONTRAST MATERIAL: IV Contrast: 17 mL of Dotarem contrast administered. COMPARISON: CR XR CHEST 2V PA LATERAL from 11/05/[address] ABDOMEN PELVIS W from 11/05/2020 FINDINGS: The examination is limited due to patient motion artifact. Since the most recent examination the patient has had prior spine surgery at L2. There appear to be a transpedicular screw tract seen on the left at L2 and bilaterally at T12. There does appear to be a screw present on the right at L2. Correlation with plain films is recommended. There is also been an interval superior endplate compression of the L1 vertebra. There is mild retropulsion into the s kaley canal but no significant central spinal canal stenosis results. Bones: The last intervertebral disc space is designated the L5/S1 level for the numbering purpose of this examination. Interval L1 compression fracture deformity. Alignment is satisfactory. Degenerati ve endplate signal changes seen at T12-L1. Cord: The conus tip ends at the T12 level. It is of normal size and signal intensity. T12-L1: No disc herniations or bulges are present. No central spinal canal or neural foraminal stenos is. L1-2: No disc herniations or bulges are present. No central spinal canal or neural foraminal stenosis . L2-3: No disc herniations or bulges are present. No central spinal canal or neural foraminal stenosis . L3-4: No disc herniations or bulges are present. No central spinal canal or neural foraminal stenosis . L4-5: No disc herniations or bulges are present. No central spinal canal or neural foraminal stenosis . L5-S1: No disc herniations or bulges are present. No central spinal canal or neural foraminal stenosi s. Soft tissues: The visualized SI joints and sacrum are well maintained. There is edema seen in the sof t tissues posteriorly consistent with the patient's surgery with hardware removal. No focal fluid co llection is seen to suggest an abscess. IMPRESSION: 1. The examination is limited due to patient motion artifact. 2. No focal fluid collection is seen to suggest an abscess. 3. Old L1 compression fracture deformity. 4. Prior spine surgery seen at L2. There appears to be a transpedicular screw on the right at L2. S crew tracts are seen at T12 and on the left at L2. Please correlate with the plain films. 5. No focal disc herniation, central spinal canal or neural foraminal stenosis is seen in the lumbar spine. 6. The preliminary [facility] report was reviewed. DATA REPOSITORY:
--- NOTE | 2025-01-29 13:51 | W.ED.GENAD ---
Discharge Plan Discharge Details Chief Complaint: Nk/Back Pain Primary Care Provider: Cary De La Torre ED Provider: Karen Norman Home Meds and New Rx's Prescriptions: No Action estradiol 0.5 mg tablet 0.5 mg PO DAILY Rx Instructions: off 5 days; repeat cycle oxycodone 10 mg tablet 10 mg PO .COMPLEX MDD 6 tablets. PRN (Reason: pain) Qty: 40 0RF Rx Instructions: 10 mg PO every 4 to 6 hours PRN; omeprazole 20 mg capsule,delayed release(DR/EC) 20 mg PO DAILY PRN PRN Patient Comments: TAKE ONE CAPSULE BY MOUTH EVERY DAY metoprolol succinate 25 mg tablet extended release 24 hr 25 mg PO DAILY Patient Comments: TAKE ONE TABLET BY MOUTH EVERY DAY fluticasone propionate [Flovent HFA] 110 mcg/actuation HFA aerosol inhaler 2 puff INHALATION DAILY Patient Comments: INHALE ONE PUFF BY MOUTH TWICE DAILY albuterol sulfate [ProAir HFA] 90 mcg/actuation Hfa Aerosol Inhaler 2 puff INHALATION Q6H PRN gabapentin 600 mg tablet 600 mg PO TID Patient Comments: TAKE ONE TABLET BY MOUTH THREE TIMES A DAY methocarbamol 750 mg tablet 750 mg PO TID Patient Comments: TAKE TWO TABLETS BY MOUTH THREE TIMES A DAY NEEDED FOR PAIN HPI General Mode of arrival: ambulatory. Date/Time Provider Initiated Documentation: 01/29/25 13:17. Limitations to Documentation: no limitations. Information obtained by: patient and old records reviewed. HPI Narrative: This is a 29-year-old female patient who had a L1 fracture and underwent T11-L2 fusion, with hardware removal performed in November of this year, presenting for evaluation of worsening back pain, fever, and leg numbness. The patient reports that she has noted that she seems to be hunching over more since her surgery, was seen by [facility] neurosurgery team who recommended a trial of physical therapy, which she has been doing without significant improvement. She is on multimodal pain management to include lidocaine patches, Tylenol, ibuprofen, oxycodone, methocarbamol, and gabapentin, which she has been taking. She states that for the last few days her pain has been increasing, no recent fall or trauma. The pain radiates down her right leg, and she does feel some numb has not changed since station to the lateral aspect of the right leg down to her foot. She states that she has been feeling generally unwell, had a headache yesterday, has had some constipation which she is treating with apple juice and states she had an episode of nonbloody diarrhea this morning. She denies bowel or bladder incontinence, does feel like her right leg is slightly weaker than her left. Related Data Home Medications ?Medication ?Instructions ?Recorded ?Confirmed albuterol sulfate 90 mcg/actuation 2 puff inhalation Q6H PRN 11/05/20 01/29/25 aerosol inhaler (ProAir HFA) fluticasone propionate 110 2 puff inhalation DAILY 11/05/20 01/29/25 mcg/actuation HFA aerosol inhaler (Flovent HFA) metoprolol succinate 25 mg 25 mg PO DAILY 11/05/20 01/29/25 tablet,extended release 24 hr omeprazole 20 mg capsule,delayed 20 mg PO DAILY PRN PRN 11/05/20 01/29/25 release oxycodone 10 mg tablet 10 mg PO .COMPLEX PRN pain #40 tabs 11/09/20 01/29/25 estradiol 0.5 mg tablet 0.5 mg PO DAILY 11/03/21 01/29/25 gabapentin 600 mg tablet 600 mg PO TID 01/29/25 01/29/25 methocarbamol 750 mg tablet 750 mg PO TID 01/29/25 01/29/25 Previous Rx's ?Medication ?Instructions ?Recorded oxycodone 10 mg tablet 10 mg PO .COMPLEX PRN pain #40 tabs 11/09/20 Allergies Allergy/AdvReac Type Severity Reaction Status Date / Time No Known Allergies Allergy Unverified 01/29/25 13:14 General Stated Complaint: Nk/Back Pain JERE: 3 Exam Narrative Exam Narrative: Gen: awake and alert, appears uncomfortable. Appears well nourished. HEENT: PERRL, EOMs full and without nystagmus. External ears and nose normal, mucous membranes moist. Neck: Supple, full range of motion, no observable masses Lungs: No increased work of breathing CV: Heart with regular rate and rhythm. Strong and symmetrical radial pulses. Abdomen: Soft, nondistended, non-tender to palpation. No rigidity, rebound tenderness, or guarding. MSK: No joint swelling, no redness. Full ROM without limitation, no external traumatic findings. Midline spine incision well-approximated and well-healed with no overlying skin changes or fluctuance, drainage. She has some tenderness to palpation over the midline upper lumbar spine. Skin: No rashes or lesions to visualized skin. Normal color, warm, and dry. Neuro: Cranial nerves II-XII intact and symmetrical bilaterally. 5/5 strength in all muscle groups x4 extremities. Endorses sensory changes of the right lower extremity down to the level of the foot compared to the contralateral side. Psych: Appropriate for situation. Course Vital Signs Vital signs: Vital Signs Temperature 37.9 C H 01/29/25 13:09 Pulse 126 H 01/29/25 13:09 Respiratory Rate 16 01/29/25 13:09 Blood Pressure 154/116 H 01/29/25 13:09 Pulse Oximetry 98 01/29/25 13:09 Temperature 37.9 C H 01/29/25 13:09 Pulse 126 H 01/29/25 13:09 Respiratory Rate 16 01/29/25 13:09 Blood Pressure 154/116 H 01/29/25 13:09 Pulse Oximetry 98 01/29/25 13:09 Pain Level 10 01/29/25 13:09 Medical Decision Making This is a 29-year-old female patient presenting for evaluation of worsening pain, general malaise and fever after having hardware removed from her back a few months ago. Of note, this patient does have a low-grade fever and is tachycardic on arrival to the emergency department. My differential includes but is not limited to musculoskeletal abnormalities including fracture, dislocation, disc disease, spinal nerve root compression, and considered spinal stenosis, spinal epidural abscess, osteomyelitis/discitis, retained hardware infection. The patient is without true weakness on my physical examination but does endorse some sensory changes and subjective weakness. No overlying skin changes to suggest abscess, cellulitis. We will obtain laboratory studies to include CBC, CMP, magnesium, ESR, and CRP. Given the recent instrumentation I think it that it is reasonable to move forward with an MRI T and L-spine with and without contrast. CBC without leukocytosis or anemia, ESR is low. I signed out care of this patient to the oncoming provider prior to completion of her MRI imaging. I anticipate that she will require neurosurgery consultation, pending the results of this imaging study. All further care per the oncoming provider. Quality:SDOH Health Related Social Needs: No Data to Display PFSH All Active Problems (Updated 11/04/21 @ 12:48 by Cathleen Crespo NP) Pulsatile tinnitus (Acute) Abnormal auditory perception of both ears (Acute) Tinnitus (Acute) Imbalance (Acute) Endometriosis (Acute) Diagnosed at age 16. Treated with both medical and surgical therapy. Asthma (Acute) Tachycardia (Acute) Hypertension (Acute) Rx with metoprolol Tobacco use (Acute) Abdominal pain (Acute) Surgical History H/O: hysterectomy S/P laparoscopic appendectomy (~10/26/20) Melvin: acute appendicitis and enometriosis S/P right oophorectomy for endometriosis Social History (Updated 11/03/21 @ 14:34 by Sandy Medina) Smoking/Tobacco Use Status: Former Tobacco Use Smoking risk assessment performed?: Yes Alcohol Intake: current Alcohol Intake frequency: holidays/special occasions only Drug use: Never Household members: family and other Details: Return from [place] 07/2020, was attending cosmetology school. Lives with mom. 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 Sexually active: No (Has not been in a relationship for 3 years) Do you feel safe at home: Yes Do you feel safe in your relationship?: Yes History History 0 Para Hx # Term Pregnancies Multiple births Hx # Pregnancies Ectopic pregnancies AB induced Hx Number of Living Children AB spontaneous
[2025-01-29 14:14] LABS: Abs Immature Grans 0.02 10^3/uL (0.0-0.06); Absolute Basophil Count 0.04 10^3/uL (0.0-0.2); Absolute Eosinophil Count 0.04 10^3/uL (0.0-0.7); Absolute Lymphocyte Count 1.66 10^3/uL (1.2-3.4); Absolute Monocyte Count 0.33 10^3/uL (0.1-0.8); Absolute Neutrophil Count 6.76 10^3/uL (1.2-6.7); Basophils % 0.5 %; Eosinophils % 0.5 %; HCT 42.4 % (36.0-46.0); HGB 14.5 g/dL (11.2-15.7); Immature Grans % 0.2 %; Lymphocytes % 18.8 %; MCH 28.7 pg (27.0-33.0); MCHC 34.2 % (32.0-36.0); MCV 84 fL (80-95); MPV 9.8 fL (8.0-11.0); Monocytes % 3.7 %; Neutrophils % 76.3 %; Platelet Count 381 10^3/uL (130-400); RBC 5.06 10^6/uL (3.93-5.22); RDW 11.6 % (11.7-14.6); RDW-SD 34.9 fL; WBC 8.85 10^3/uL (4.4-10.8)
[2025-01-29 14:16] LABS: ESR 17 mm/hr (0-20)
[2025-01-29] MEDS: diazePAM 10 MG/2 ML SYR 5 MG IVP (14:16)
[2025-01-29] MEDS: Gadoterate meglumine 20 ML SYRINGE 17 ML IVP (15:54)
[2025-01-29] MEDS: Normal Saline Flush 10 ML SYR IVP (15:55)
[2025-01-29] MEDS: HYDROmorphone 2 MG/ML SYR 1 MG IVP (16:52)
[2025-01-29] MEDS: Acetaminophen 500 MG TAB 1000 MG PO (16:53)
[2025-01-29 17:28] LABS: ALT 26 U/L (14-59); AST 21 U/L (15-37); Alkaline Phosphatase 85 U/L (46-116); Anion Gap 11.4 mmol/L (3-11); BUN 16 mg/dL (7-18); Bilirubin, Total 0.5 mg/dL (0.2-1.0); C-Reactive Protein < 0.50 mg/dL (<or=0.5); CO2 23.6 mmol/L (21.0-32.0); CREATININE 0.7 mg/dL (0.55-1.02); Chloride 105 mmol/L (98-107); Estimated GFR 120.74 (mL/min/1.73m2); Glucose 107 mg/dL (74-106); Magnesium 1.9 mg/dL (1.8-2.4); Potassium 3.9 mmol/L (3.5-5.1); Sodium 140 mmol/L (136-145); Total Protein 7.9 g/dL (6.4-8.2)
--- NOTE | 2025-01-29 17:30 | RT.EKG_ITS ---
APPROVED REPORT Exam: Resting ECG Reason for Exam: chest pain Patient Location: E HR:90 bpm ECG Measurements Heart Rate 90 AXIS NE 160 P 45 QRSd 76 QRS 10 QT 337 T 13 QTc 414 Conclusion Sinus rhythm 90 normal axis no stemi
--- NOTE | 2025-01-29 18:24 | DI.VRAD_ITS ---
PROCEDURE INFORMATION: Exam: MR Thoracic Spine Without and With Contrast Exam date and time: 01/29/2025 3:08 PM Age: 29 years old Clinical indication: Pain in thoracic spine; With radiculopathy; Bilateral; Prior surgery; Surgery date: 1-6 months; Surgery type: Hardware removed TECHNIQUE: Imaging protocol: Magnetic resonance imaging of the thoracic spine without and with contrast. Contrast material: DOTAREM; Contrast volume: 17 ml; Contrast route: INTRAVENOUS (IV); COMPARISON: MR LUMBAR SPINE WO/W 01/29/2025 2:35 PM FINDINGS: Limited due to motion artifact Bones/joints: Mild chronic loss of vertebral body height at T10-T12. Small hemangioma at T 9 No fracture. Normal alignment. No significant disc bulge or herniation. No severe spinal canal stenosis. No significant neural foraminal narrowing. Spinal cord: Normal signal. No cord compression. Normal enhancement Soft tissues: Unremarkable. IMPRESSION: No acute findings. Limited study due to motion artifact predominantly on the postcontrast images Dictated and Authenticated by: Foreign Freitas MD. Orderin [facility] Jones MD
--- NOTE | 2025-01-29 18:30 | DI.VRAD_ITS ---
PROCEDURE INFORMATION: Exam: MR Lumbar Spine Without and With Contrast Exam date and time: 01/29/2025 2:35 PM Age: 29 years old Clinical indication: Low back pain; Prior surgery; Surgery date: 1-6 months; Surgery type: Hardware removal TECHNIQUE: Imaging protocol: Magnetic resonance imaging of the lumbar spine without and with contrast. Contrast material: DOTAREM; Contrast volume: 17 ml; Contrast route: INTRAVENOUS (IV); COMPARISON: CT ABDOMEN PELVIS W 11/05/2020 1:33 PM FINDINGS: Bones/joints: Transpedicular screws at the L2 level. Faintly visualized transpedicular screws versus prior screws at the T12 level and on the left at L1 Chronic compression deformity at the L1 level with mild loss of height and mild retropulsion of the posterosuperior segment into the central spinal canal No fracture. Spinal cord: Question minimal mass effect on the conus medullaris. No edema. There is no abnormal enhancement T12-L1: Mild central canal stenosis. No significant foraminal stenosis L1-L2: No significant disc bulge or herniation. No severe spinal canal stenosis. No significant neural foraminal narrowing. L2-L3: No significant disc bulge or herniation. No severe spinal canal stenosis. No significant neural foraminal narrowing. L3-L4: No significant disc bulge or herniation. No severe spinal canal stenosis. No significant neural foraminal narrowing. L4-L5: No significant disc bulge or herniation. No severe spinal canal stenosis. No significant neural foraminal narrowing. L5-S1: No significant disc bulge or herniation. No severe spinal canal stenosis. No significant neural foraminal narrowing. Soft tissues: Postsurgical changes in the paraspinal tissues at the L1-L2 level. No collection or mass observed IMPRESSION: Chronic compression deformity at L1 with mild retropulsion into the central canal and question minimal mass effect on the conus medullaris Postsurgical changes at the T12-L2 level as described. Findings compatible with the given clinical history of hardware removal. Possible residual transpedicular screw at the L2 level on the right. No paraspinal collection or mass Dictated and Authenticated by: Foreign Freitas MD. Orderin [facility] Esc[facility] Jones MD
[2025-01-29] MEDS: MORPHine IR 15 MG TAB PO (19:15)
[2025-01-29 19:33] LABS: Bilirubin Negative (Negative); Blood Negative (Negative); Clarity Clear (Clear); Glucose Negative (Negative); Ketones Negative (Negative); Leukocyte Esterase Negative (Negative); Nitrite Negative (Negative); Specific Gravity >= 1.030 (1.005-1.025); Urobilinogen 0.2 mg/dL (Up to 0.2); pH 5.5 (5-8)
--- NOTE | 2025-01-29 20:25 | ED.PROG_ITS ---
Date of service: 01/29/25 Time of Service: 21:00 Medical Decision Making Care assumed from outgoing provider. Patient is a 29-year-old female has history of lumbar spine surgery with hardware removal 2 months ago. The patient presented with fever and worsened abdominal pain. At the time of signout, the patient's disposition was pending MRI. The MRI was completed in the radiology read was reviewed. No acute abnormality or findings appreciated. I reviewed her lab work and noted no elevation in her white blood cell count and her inflammatory markers are undetectable. I also checked a urinalysis and a flu swab to fully evaluate for infectious etiology as these are both negative. I discussed with neurosurgery at [facility] who reviewed the emergency department workup and also spoke with the patient earlier this evening. The patient will be discharged home with a few doses of oral morphine to take instead of her oxycodone. She seemed to get decent pain relief with oral morphine in the emergency department. She was observed to be walking and was fairly comfortable. They will follow her up closely. She can also wear her home brace as needed. Quality:SDOH Health Related Social Needs: No Data to Display Discharge Plan Disposition Patient Disposition: Home Condition: Stable Discharge Details Clinical Impression: Back pain Primary Care Provider: Cary De La Torre ED Provider: Delphine Horowitz Home Meds and New Rx's Prescriptions: No Action estradiol 0.5 mg tablet 0.5 mg PO DAILY Rx Instructions: off 5 days; repeat cycle oxycodone 10 mg tablet 10 mg PO .COMPLEX MDD 6 tablets. PRN (Reason: pain) Qty: 40 0RF Rx Instructions: 10 mg PO every 4 to 6 hours PRN; omeprazole 20 mg capsule,delayed release(DR/EC) 20 mg PO DAILY PRN PRN Patient Comments: TAKE ONE CAPSULE BY MOUTH EVERY DAY metoprolol succinate 25 mg tablet extended release 24 hr 25 mg PO DAILY Patient Comments: TAKE ONE TABLET BY MOUTH EVERY DAY fluticasone propionate [Flovent HFA] 110 mcg/actuation HFA aerosol inhaler 2 puff INHALATION DAILY Patient Comments: INHALE ONE PUFF BY MOUTH TWICE DAILY albuterol sulfate [ProAir HFA] 90 mcg/actuation Hfa Aerosol Inhaler 2 puff INHALATION Q6H PRN gabapentin 600 mg tablet 600 mg PO TID Patient Comments: TAKE ONE TABLET BY MOUTH THREE TIMES A DAY methocarbamol 750 mg tablet 750 mg PO TID Patient Comments: TAKE TWO TABLETS BY MOUTH THREE TIMES A DAY NEEDED FOR PAIN Discharge Instructions Additional Instructions: Morphine provided for acute pain today for the next couple of days. You can take 1/2-1 tab every 6-8 hours. Continue your other pain control medications at home. Do not take the morphine in addition to the oxycodone. Continue your outpatient management, wear your brace as needed for comfort. Keep in contact with your neurosurgical team as they may need to see you in clinic earlier if your symptoms continue.
[2025-01-29] MEDS: MORPHine IR 15 MG TAB, 4 TABS/BTL PO (20:35)
== END 2025-01-29 20:41 | disposition home or self-care (01) ==
PROVIDERS: Emergency Medicine; Emergency Provider Emergency Medicine; PCP Internal Medicine
DX: M54.50 Low back pain, unspecified (principal); I10 Essential (primary) hypertension; Z87.891 Personal history of nicotine dependence
CPT/HCPCS: 00123; 72158; 80053; 81025; 85652; 87426; 93005; 96374; 96375; 99285; 72157; 81003; 83735; 85025; 86140; 93010; J1171; J3360